=== PATIENT | male | born 1965 | race Caucasian/White ===

== ENCOUNTER 2024-03-15 16:12 | Emergency (ER) | payer BC, SELFPAY ==
--- NOTE | ~2024-03-15 | XR_ITS ---
EXAMINATION: XR chest 2V Exam Date/Time: 03/15/2024 16:26 CDT HISTORY: cough, decreased lung sounds Comparison: 05/05/2014. RESULT: Lines, tubes, and devices: None. Lungs and pleura: Clear. Granulomatous calcifications. Cardiomediastinal silhouette: Stable. Calcified hilar nodes. Other: No acute osseous or upper abdominal finding. IMPRESSION: No acute cardiopulmonary process. Reviewed, dictated and finalized at location K.
[2024-03-15 16:18] VITALS: BP 133/91; PULSE 80; RESP 20; TEMP 37; O2SAT 95
[2024-03-15] MEDS: IPRATROPIUM BR 0.02% INH SOLN 0.5 MG/2.5 ML VIAL INHALATION (17:04)
[2024-03-15] MEDS: IPRATROPIUM 0.5 MG/ALBUTEROL SULFATE 2.5 MG AMPUL.NEB 3 ML INHALATION (17:04)
--- NOTE | 2024-03-15 20:18 | ED.URI ---
HPI - URI/Sore Throat General Chief Complaint: Upper Respiratory Infection Stated Complaint: Congestion Time Seen by Provider: 03/15/24 16:34 Source: patient, RN notes reviewed and old records reviewed Mode of arrival: ambulatory Limitations: no limitations History of Present Illness HPI Narrative: 58 year-old male to Express Care with complaint of cough, hoarseness, congestion x3 days. Patient endorses history of asthma, bronchitis, pneumonia. Patient denies fever, nausea, vomiting. Patient able to tolerate fluids by mouth. Patient in no acute distress. Related Data Home Medications Medication Instructions Recorded Confirmed albuterol sulfate 90 mcg/actuation 90 mcg inhalation PRN PRN 03/15/24 03/15/24 aerosol inhaler Shortness Of Breath Or Wheezing budesonide-formoterol HFA 160 2 puff inhalation PRN PRN 03/15/24 03/15/24 mcg-4.5 mcg/actuation aerosol Shortness Of Breath Or Wheezing inhaler (Symbicort) hydroxyzine HCl 25 mg tablet 25 mg PO DAILY 03/15/24 03/15/24 pantoprazole 40 mg tablet,delayed 40 mg PO DAILY 03/15/24 03/15/24 release Allergies Allergy/AdvReac Type Severity Reaction Status Date / Time amoxicillin Allergy Severe RASH/HIVES Verified 03/15/24 16:35 Review of Systems Review of Systems: All systems reviewed & are unremarkable except as noted in HPI and below Constitutional: Constitutional: Reports as per HPI and Denies fever(s) Eyes: Eyes: Reports no additional eye complaints ENT: Reports as per HPI, Reports hoarseness and Reports nasal congestion Cardiovascular: Cardiovascular: Reports no additional cardiovascular complaints, Denies chest pain and Denies dyspnea Respiratory: Respiratory: Reports no additional respiratory complaints, Reports cough, Reports pain with cough and Denies dyspnea Musculoskeletal: Musculoskeletal: Reports no additional musculoskeletal complaints Neurologic: Reports system reviewed and no additional complaints, except as documented Psychiatric: Psychiatric: Reports no additional psychiatric complaints PMFSH Comments At the time of my signature, I reviewed and agree with the nursing past medical, surgical, social, and family history. There is no relevant family history pertinent to the patient complaint. Exam Const: General: cooperative, no acute distress, alert, ill appearing acutely, tired appearing and well nourished Nutritional Appearance: well nourished Orientation/consciousness: patient oriented x3 Limitations: no limitations HENMT: Head: normal to inspection Ears: external ears normal and TM abnormal erythematous on the right Face/Nose/Sinus: Normal external nose present, Normal nares present, normal facial exam, No erythema and No edema Face and sinus: normal facial exam, no erythema and no edema Mouth: Yes Normal oral and palatal mucosa present Throat: postnasal drainage Eyes: General: appearance normal, both eyes and all related structures Neck: Neck: normal visual inspection, full ROM and no meningeal signs Lymphatic: no lymphadenopathy noted and no lymphedema noted Chest: Chest palpation & inspection: normal inspection of the chest Resp: Effort & Inspection: normal respiratory effort and able to speak in complete sentences Auscultation: wheezes expiratory wheezes and scattered wheezes Cardio: Jugular venous distension: no JVD Rate: regular rate Rhythm: regular rhythm Back/Spine/Pelvis: Cervical Spine: cervical ROM normal Skin: General skin exam: normal color, no rashes or lesions noted and turgor normal Neuro: General: patient oriented x3, gait normal, moves all extremities and no meningeal signs Speech: normal speech Gait exam (Neuro): Normal gait present Extrem: General: normal to inspection, full ROM and capillary refill normal Psych: Appearance: grossly normal and well kempt Course Course Emergency Course: Some parts of this dictation were generated by voice recognition software and may contain typographical and/or gr
== END 2024-03-15 17:45 | disposition home or self-care (01) ==
PROVIDERS: Emergency Provider Nurse Practitioner Family; PCP Family Medicine
DX: H66.91 Otitis media, unspecified, right ear (principal); J45.901 Unspecified asthma with (acute) exacerbation; R73.03 Prediabetes
CPT/HCPCS: 71046; 94640; 99213; G0463

== ENCOUNTER 2025-01-22 11:42 | Emergency (ER) | payer BC, SELFPAY ==
--- NOTE | ~2025-01-22 | XR_ITS ---
Clinical Indication: Cough PA and lateral views of the chest: Comparison: 03/15/2024 Findings: The lungs are clear, without evidence of focal consolidation or pleural effusion. Cardiome diastinal silhouette is within normal limits. Bones and soft tissues are unremarkable. Impression: Normal chest. Reviewed, dictated and finalized at location . Impression: Normal chest.
--- OUTSIDE RECORDS SUMMARY | 2025-01-22 11:44 | XMS_ITS | Referral Summary ---
Author Organization [facility] Address [address] [place] [address] Care Team Providers Care Print Machine Operator Name Role Phone Lebron Brown MD Primary Care Provider [phone] Source Comments [facility],non-owned Affiliates and Associated Physician Practices is amultiple site organization consisting of ambulatory clinics and hospital sitesin [place], [place], [place] and [place]. This disclosure is being madepursuant to the Care Everywhere program and may not contain all information available regarding this patient. Last updated 18.[facility] Social History Tobacco Use Types Packs/Day Years Used Date Smoking Tobacco: Never Assessed Sex and Gender Information Value Date Recorded Sex Assigned at Not on file Gender Identity Not on file Sexual Orientation Not on file Plan of Treatment Not on file Care Teams Print Machine Operator Relationship Specialty Start Date End Date Lebron Brown MD [facility] [place] [address] PCP - General Family Medicine 04/06/18
--- OUTSIDE RECORDS SUMMARY | 2025-01-22 11:44 | XMS_ITS | Clinical Summary ---
Author Organization [address] Address [address] [place] [id number] Care Team Providers Care Rail Switchman Name Role Phone Unknown, Notinfile Primary Care Provider Unavail able Allergies Active Allergy Reactions Criticality Noted Date Comments Amoxicillin Hives Medium 11/28/2023 Medications albuterol HFA (PROVENTIL HFA,VENTOLIN HFA,PROAIR HFA) 90 mcg/actuation inhaler INHALE 2 PUFFS EVERY 4 HOURS NEEDED FOR SHORTNESS OF BREATH 3 Active azithromycin (ZITHROMAX) 250 mg tablet TAKE 2 TABLETS BY MOUTH TODAY, THEN TAKE 1 TABLET DAILY FOR 4 DAYS DIRECTED 3 Active Symbicort 160-4.5 mcg/actuation inhaler 3 Active hydrOXYzine (ATARAX) 25 mg tablet 4 Active methylPREDNISol one (MEDROL DOSEPACK) 4 mg Dosepack FOLLOW PACKAGE DIRECTIONS [address] (PROTONIX) 40 mg EC tablet 3 Active predniSONE (DELTASONE) 20 mg tablet TAKE 1 TABLET BY MOUTH EVERY DAY FOR 7 DAYS 3 Active Active Problems No known active problems Social History Tobacco Use Types Packs/Day Years Used Date Smoking Tobacco: Never Assessed Sex and Gender Information Value Date Recorded Sex Assigned at Not on file Legal Sex Male 2:16 PM GLOBAL MARKETING COORDINATOR Gender Identity Not on file Sexual Orientation Not on file Obstetrics History Last Filed Vital Signs Vital Sign Reading Time Taken Comments Blood Pressure 132/80 11/28/2023 3:31 PM GLOBAL MARKETING COORDINATOR Pulse 63 11/28/2023 3:31 PM GLOBAL MARKETING COORDINATOR Temperature 36.9 C (98.4 F) 11/28/2023 3:31 PM GLOBAL MARKETING COORDINATOR Respiratory Rate 20 11/28/2023 3:31 PM GLOBAL MARKETING COORDINATOR Oxygen Saturation 97% 11/28/2023 3:31 PM GLOBAL MARKETING COORDINATOR Inhaled Oxygen Concentration - - Weight 112 kg (247 lb) 11/28/2023 3:31 PM GLOBAL MARKETING COORDINATOR Height 185.4 cm (6' 1 ) 11/28/2023 3:31 PM GLOBAL MARKETING COORDINATOR Body Mass Index 32.59 11/28/2023 3:31 PM GLOBAL MARKETING COORDINATOR Plan of Treatment Health Maintenance Due Date Last Done Comments Colon Cancer Screening-Colonoscopy 1963 Depression Screening 1963 Hepatitis C Screening 1963 Prostate Cancer Screening-PSA 1963 DTaP/Tdap/Td Vaccine (1 - Tdap) 1974 Hepatitis B Screening 1981 Regular Well Visit/Exam 18-64 1981 Zoster Vaccine (1 of 2) 2013 Covid-19 Vaccine (4 - season) 2024 11/11/2021, 02/05/2021, 01/08/2021 Influenza Vaccine (#1) 2024 , 08/22/2022, 08/19/2021, Additional history exists Pneumococcal vaccine <65 Aged Out No longer eligible based on patient's age to complete this topic Insurance [facility] CHOICE OOS Member Subscriber Plan / Payer (Ef fective 2022-Present) Name:Vitor Davidson Relation to Subscriber:Self Name:Vitor Davidson Payer ID:[id number] (IC) Type: SEB Address: [facility] [id number] [place] [id number] Care Teams Rail Switchman Relationship Specialty Start Date End Date Unknown, Notinfile PCP - General 11/28/23
--- OUTSIDE RECORDS SUMMARY | 2025-01-22 11:44 | XMS_ITS | Continuity of Care Document ---
Author Organization [facility] Address [address] [place] [address] [place] [address] Phone Care Team Providers Care Career Technical Counselor Name Role Phone Burrows OD, Wilberto Unavailable Unavailable Procedures Procedure Date Eye Exam Established Pt Office/outpatient Visit, Est Office/outpatient Visit, New Advance Directives Directive Yes / No Effective Date File Name No Information Encounters Encounter Description Practice Location Reason(s) For Visit Diagnoses Date Provider Providers Copied on Encounter [facility], [address] [place] [address] [address], [place], [place], [id number], tel:[phone] [facility] No Information Jun-2 5-201 0 Burrows OD Wilberto. [address] , [address], [place], [address], . tel:[phone] Office/outpat ient Visit, [facility], [address] [place] [address] [address], [place], [place], [id number], tel:[phone] [facility] No Information Aug-0 5-201 0 Hina Rosa. [address], [place], [address], [place]. tel:[phone] Office/outpat ient Visit, [facility], [address] [place] [address] [address], [place], [place], [id number], tel:[phone] [facility] No Information Aug-0 3-201 0 Krishnascalos Venancio. [address], [address], [place]. tel:[phone] Family History Family Member Type Diagnosis Age At Onset No Information Payers Payer name Insurance type Covered libertarian ID Authoriza tion(s) No Information Social History Type Description Quantity Date Captured Comments Sex Male Smoking Status No Information Chief Complaint And Reason For Visit No Information Reason For Referral Reason For Referral No Information History Of Present Illness Encounter Date Complaint History Of Prese nt Illness No Information Functional Status Date Functional Assessmen t No Information Instructions Date Instruction Additional Infor mation No Information Assessments Type Assessment Date No Information Patient Care Teams Name Effective Dates (start - stop) Status Members No Information
--- OUTSIDE RECORDS SUMMARY | 2025-01-22 11:44 | XMS_ITS | Patient Health Summary ---
Author Organization [facility] Address [address] [facility] [place] [address] Care Team Providers Care Broom Bundler Name Role Phone Lebron Brown MD Primary Care Provider [phone] Note from [facility],non-owned Affiliates and Associated Physician Practices is amultiple site organization consisting of ambulatory clinics and hospital sitesin [place], [place], [place] and [place]. This disclosure is being madepursuant to the Care Everywhere program and may not contain all information available regarding this patient. Last updated 18.[facility] Social History Tobacco Use Types Packs/Day Years Used Date Smoking Tobacco: Never Assessed Sex and Gender Information Value Date Recorded Sex Assigned at Not on file Gender Identity Not on file Sexual Orientation Not on file Care Teams Broom Bundler Relationship Specialty Start Date End Date Lebron Brown MD [facility] [place] [address] PCP - General Family Medicine 04/06/18
--- OUTSIDE RECORDS SUMMARY | 2025-01-22 11:44 | XMS_ITS | Referral Summary ---
Author Organization [address] Address [address] [place] [id number] Care Team Providers Care Transitions Rn Care Coordinator Name Role Phone Unknown, Notinfile Primary Care [...] on file Legal Sex Male 2:16 PM TILE PRESSER Gender Identity Not on file Sexual Orientation Not on file Last Filed Vital Signs Vital Sign Reading Time Taken Comments Blood Pressure 132/80 11/28/2023 3:31 PM TILE PRESSER Pulse 63 11/28/2023 3:31 PM TILE PRESSER Temperature 36.9 C (98.4 F) 11/28/2023 3:31 PM TILE PRESSER Respiratory Rate 20 11/28/2023 3:31 PM TILE PRESSER Oxygen Saturation 97% 11/28/2023 3:31 PM TILE PRESSER Inhaled Oxygen Concentration - - Weight 112 kg (247 lb) 11/28/2023 3:31 PM TILE PRESSER Height 185.4 cm (6' 1 ) 11/28/2023 3:31 PM TILE PRESSER Body Mass Index 32.59 11/28/2023 3:31 PM TILE PRESSER Plan of Treatment Not on file Insurance [facility] CHOICE OOS Care Teams Transitions Rn Care Coordinator Relationship Specialty Start Date End Date Unknown, Notinfile PCP - General 11/28/23
--- OUTSIDE RECORDS SUMMARY | 2025-01-22 11:44 | XMS_ITS | Clinical Summary ---
Author Organization [facility] Address [address] [facility] [place] [address] Care Team Providers Care Supervisor Typesetting Name Role Phone Lebron Brown MD Primary Care Provider [phone] Source Comments [facility],non-owned Affiliates and Associated Physician Practices is amultiple site organization consisting of ambulatory clinics and hospital sitesin [place], [place], [place] and [place]. This disclosure is being madepursuant to the Care Everywhere program and may not contain all information available regarding this patient. Last updated 18.[facility] [employer] Social History Tobacco Use Types Packs/Day Years Used Date Smoking Tobacco: Never Assessed Sex and Gender Information Value Date Recorded Sex Assigned at Not on file Gender Identity Not on file Sexual Orientation Not on file Plan of Treatment Health Maintenance Due Date Last Done Comments COLOGUARD (AGES 45-75) - COL ON CA SCREENING 1963 COLON MONITORING 1963 COLONOSCOPY - COLON CA SCREENING 1963 CT COLONOGRAPHY - COLON CA SCREENING 1963 Colorectal Cancer Screening 1963 FIT - COLON CA SCREENING 1963 FLEX SIG - COLON CA SCREENING 1963 LIPID TESTING 1963 HIV SCREENING 1978 HEPATITIS C SCREENING 08/03/1981 DTAP/TDAP/TD VACCINES (1 - Tdap) 1982 PNEUMOCOCCAL VACCINE 50+ (1 of 1 - PCV) 2013 ZOSTER VACCINE (1 of 2) 2013 COVID-19 VACCINE ( - 2023-2 5 season) 2024 INFLUENZA VACCINE (#1) 2024 DEPRESSION SCREENING 11/16/2024 Respiratory Syncytial Virus (RSV) Vaccine Pt: or over 60 yrs (1 - 1-dose 75+ series) 2038 HEPATITIS B VACCINE Aged Out No longe r eligible based on patient's age to complete this topic HIB VACCINE Aged Out No longer eligi ble based on patient's age to complete this topic HPV VACCINE Aged Out No longer eligi ble based on patient's age to complete this topic MENINGOCOCCAL (Group B) VACCINE Aged Out No longer eligible based on patient's age to complete this topic MENINGOCOCCAL VACCINE Aged Out No shandra bertha eligible based on patient's age to complete this topic PNEUMOCOCCAL VACCINE Aged Out No long er eligible based on patient's age to complete this topic Care Teams Supervisor Typesetting Relationship Specialty Start Date End Date Lebron Brown MD [facility] [place] [address] PCP - General Family Medicine 04/06/18
[2025-01-22 11:46] VITALS: BP 135/62; PULSE 100; RESP 20; TEMP 36.1; O2SAT 97
--- OUTSIDE RECORDS SUMMARY | 2025-01-22 11:46 | XMS_ITS | Continuity of Care Document ---
Author Organization [facility] Address [address] [place] [address] [place] [address] Phone Care Team Providers Care Cathode Ray Tube Salvage Processor Name Role Phone Burrows OD, Wilberto Unavailable Unavailable Procedures Procedure Date Eye Exam Established Pt Office/outpatient Visit, Est Office/outpatient Visit, New Advance Directives Directive Yes / No Effective Date File Name No Information Encounters Encounter Description Practice Location Reason(s) For Visit Diagnoses Date Provider Providers Copied on Encounter [facility], [address] [place] [address] [address], [place], [place], [id number], tel:[phone] SEC [facility] No Information Jun-2 5-201 0 Burrows OD Wilberto. [address] [facility] , [address], [place], [address], . tel:[phone] Office/outpat ient Visit, [facility], [address] [place] [address] [address], [place], [place], [id number], tel:[phone] [facility] No Information Aug-0 5-201 0 Hina Rosa. [address], [place], [address], [place]. tel:[phone] Office/outpat ient Visit, [facility], [address] [place] [address] [address], [place], [place], [id number], tel:[phone] [facility] No Information Aug-0 3-201 0 Krishnascalos Venancio. [address], [address], [place]. tel:[phone] Family History Family Member Type Diagnosis Age At Onset No Information Payers Payer name Insurance type Covered republican ID Authoriza tion(s) No Information Social History [...]
[2025-01-22] MEDS: methylPREDNISolone SOD SUCC 125 MG VIAL IM (12:12)
[2025-01-22] MEDS: IPRATROPIUM 0.5 MG/ALBUTEROL SULFATE 2.5 MG AMPUL.NEB 3 ML INHALATION ×2 (12:12→12:52)
--- NOTE | 2025-01-22 12:52 | ED.GENADULT ---
HPI - General Adult General Chief complaint: Upper Respiratory Infection Stated complaint: chest/head congestion Source: patient Mode of arrival: ambulatory Limitations: no limitations History of Present Illness HPI narrative: Patient presents for evaluation of respiratory symptoms. Symptom onset 1 week ago. Reports sinus congestion, cloudy white nasal discharge, productive cough of white cloudy sputum, and dyspnea on exertion. He denies any fever, chills, nausea, vomiting, diarrhea. No recent sick contacts to his knowledge. He does not smoke. He has underlying asthma. He does not have any nebulizer solution home but has a nebulizer machine. He states that his current symptoms are consistent with previous asthma exacerbations. In the past, steroids, nebulizer treatments and antibiotics seem to help when he has these symptoms. Related Data Home Medications ?Medication ?Instructions ?Recorded ?Confirmed ?Last Taken ?Type albuterol sulfate 90 mcg/actuation 90 mcg inhalation PRN PRN 03/15/24 03/15/24 Unknown History aerosol inhaler Shortness Of Breath Or Wheezing budesonide-formoterol HFA 160 2 puff inhalation PRN PRN 03/15/24 03/15/24 Unknown History mcg-4.5 mcg/actuation aerosol Shortness Of Breath Or Wheezing inhaler (Symbicort) hydroxyzine HCl 25 mg tablet 25 mg PO DAILY 03/15/24 03/15/24 Unknown History pantoprazole 40 mg tablet,delayed 40 mg PO DAILY 03/15/24 03/15/24 Unknown History release Allergies Allergy/AdvReac Type Severity Reaction Status Date / Time amoxicillin Allergy Severe RASH/HIVES Verified 01/22/25 12:04 Review of Systems Review of Systems: CONSTITUTIONAL: Denies fever, chills, or sweats. EYES: Denies visual changes, redness, or discharge. ENT: Reports nasal congestion and cloudy white nasal discharge. CARDIOVASCULAR: Denies chest pain, palpitations, or edema. RESPIRATORY: Reports productive cough of cloudy white sputum and shortness of breath GASTROINTESTINAL: Denies abdominal pain, nausea, vomiting, or diarrhea. GENITOURINARY: Denies dysuria or hematuria. SKIN: Denies rash or itching. MUSCULOSKELETAL: Denies back pain, joint pain, or myalgia. NEUROLOGIC: Denies headache, numbness, dizziness, or weakness. PSYCHIATRIC: Denies anxiety or depression. [facility] Past Medical History Medical History Asthma Surgical History Surgical History No pertinent past surgical history Family History Family History Mother Family history non-contributory Social History Social History Substance use: never Living arrangements: with family Gender identity (if verbalized by the patient): Male Sexual Orientation (if Verbalized by the Patient): Straight or Heterosexual Spiritual care concerns: No Exam Narrative: GENERAL: Well-appearing, well-nourished, and in no acute distress. HEAD: Normocephalic, atraumatic. EYES: PERRLA and EOMI. ENT: Nares clear, no rhinorrhea or epistaxis. Mucous membranes moist. Oropharynx without tonsillar hypertrophy exudate or other lesions. Bilateral TMs pearly vera nonbulging NECK: Supple. No adenopathy or masses. No carotid bruits or JVD CHEST: Expiratory wheezing noted in posterior lung roth bilaterally. Cough present on exam. HEART: Regular rate and rhythm. No murmur heard. Normal peripheral pulses. ABDOMEN: Soft, nontender, nondistended, normal active bowel sounds. EXTREMITIES: Normal range of motion. No edema. SKIN: Warm, dry, no rash. NEURO: No focal deficits. Alert and oriented x3. PSYCH: Normal mood and affect. Course Course Emergency Course: This is a 59-year-old male who presented for evaluation of respiratory symptoms. Influenza and COVID were not checked as his symptom onset was about a week ago. Chest x-ray negative. He has high risk for pneumonia so we opted proceed with antibiotic therapy. Furthermore he had improvement in his symptoms in the past with this therapy and. Will discharge with cefdinir, azithromycin, prednisone, albuterol. He should follow-up with his primary provider and go to the ER for worsening symptoms. Patient in agreement with plan of care. Level of Care: Express Care Visit Vital Signs Vital signs: Vital Signs Temperature 36.1 C L 01/22/25 11:46 Pulse Rate 100 01/22/25 11:46 Respiratory Rate 20 01/22/25 11:46 Blood Pressure 135/62 01/22/25 11:46 Pulse Oximetry 97 01/22/25 11:46 Oxygen Delivery Room Air 01/22/25 11:46 Temperature 36.1 C L 01/22/25 11:46 Pulse Rate 100 01/22/25 11:46 Respiratory Rate 20 01/22/25 11:46 Blood Pressure 135/62 01/22/25 11:46 Pulse Oximetry 97 01/22/25 13:03 Oxygen Delivery Room Air 01/22/25 11:46 Medical Decision Making Vital Signs Vital Signs: Vital Signs Temperature 36.1 C L 01/22/25 11:46 Pulse Rate 100 01/22/25 11:46 Respiratory Rate 20 01/22/25 11:46 Blood Pressure 135/62 01/22/25 11:46 Pulse Oximetry 97 01/22/25 11:46 Oxygen Delivery Room Air 01/22/25 11:46 Temperature 36.1 C L 01/22/25 11:46 Pulse Rate 100 01/22/25 11:46 Respiratory Rate 20 01/22/25 11:46 Blood Pressure 135/62 01/22/25 11:46 Pulse Oximetry 97 01/22/25 13:03 Oxygen Delivery Room Air 01/22/25 11:46 Imaging Data Radiologist's impression: Clinical Indication: Cough PA and lateral views of the chest: Comparison: 03/15/2024 Findings: The lungs are clear, without evidence of focal consolidation or pleural effusion. Cardiomediastinal silhouette is within normal limits. Bones and soft tissues are unremarkable. Impression: Normal chest. Discharge Plan Discharge Clinical Impression: Asthma exacerbation, At risk for pneumonia Patient Disposition: Home, Self-Care Condition: Stable Instructions: Antibiotic Form, Asthma (ED), Pneumonia (ED) Patient Language: Dutch Prescriptions: New azithromycin 250 mg tablet See Rx Instructions .ROUTE .COMPLEX Qty: 6 0RF Rx Instructions: For 250 mg dose pack: take 500 mg today (day 1), then 250 mg for 4 days (days 2-5) cefdinir 300 mg capsule 300 mg PO Q12H Qty: 20 0RF prednisone 50 mg tablet 50 mg PO DAILY Qty: 5 0RF albuterol sulfate 2.5 mg /3 mL (0.083 %) solution for nebulization 2.5 mg inhalation Q6H Qty: 90 0RF No Action pantoprazole 40 mg tablet,delayed release (DR/EC) 40 mg PO DAILY hydroxyzine HCl 25 mg tablet 25 mg PO DAILY albuterol sulfate 90 mcg/actuation HFA aerosol inhaler 90 mcg INHALATION PRN PRN (Reason: Shortness Of Breath Or Wheezing) budesonide-formoterol [Symbicort] 160-4.5 mcg/actuation HFA aerosol inhaler 2 puff INHALATION PRN PRN (Reason: Shortness Of Breath Or Wheezing) albuterol sulfate 2.5 mg /3 mL (0.083 %) solution for nebulization 2.5 mg inhalation Q6H Qty: 90 0RF ipratropium bromide 0.02 % solution 2.5 ml inhalation Q6H PRN (Reason: shortness of breath or wheezing) Qty: 75 0RF Follow-up/Referrals: Stephanie,Lebron Dong MD [Primary Care Provider] - Time of Disposition: 13:23
[2025-01-22 13:03] VITALS: O2SAT 97
== END 2025-01-22 13:25 | disposition home or self-care (01) ==
PROVIDERS: Emergency Provider Nurse Practitioner; PCP Family Medicine
DX: J45.901 Unspecified asthma with (acute) exacerbation (principal); J18.9 Pneumonia, unspecified organism
CPT/HCPCS: 71046; 94640; 99213; G0463; J2919

== ENCOUNTER 2025-03-23 09:46 | Outpatient (CLI) | payer BC, SELFPAY ==
--- NOTE | ~2025-03-23 | CT_ITS ---
CT abdomen pelvis w con Ordering provider: Lebron Brown, History: 59 years Male with . Jaundice and abd pain . Comparison: None. Technique: CT abdomen and pelvis with IV and without oral contrast. Automated exposure control and it erative reconstruction technique were employed. The dose-length product was 1301.09 mGy-cm. 100 mL Om nipaque 350 was given IV. Findings: VISUALIZED LOWER CHEST: Dependent atelectatic changes.. UPPER ABDOMINAL ORGANS: Liver: Intrahepatic biliary dilatation with dilated CBD. CBD measures 1.3 cm. No definite stones or m asses seen in the CBD. The dilatation is extending to the sphincter of Oddi. ERCP is advised for furt her evaluation. Gallbladder: Slightly distended. No stones seen Spleen: Normal. Benign calcifications. Stomach/duodenum: Small sliding hiatus hernia. Thickened wall in the lesser curvature area. Further e valuation advised. Pancreas: Normal. Adrenals: Normal. Kidneys: Normal. PELVIC ORGANS: The bladder is normal. BOWEL AND MESENTERY: Colon: No evidence of diverticulitis. Slight thickening of the transverse colon near to the splenic f lexure is seen. Follow-up advised. Normal appendix. Small Bowel: Normal. No obstruction. Peritoneum/mesentery: No free air or free fluid. No mesenteric lymphadenopathy. RETROPERITONEUM: Mild atheromatous disease of the abdominal aorta. No retroperitoneal lymphadenopat hy. MUSCULOSKELETAL: Superficial soft tissues: The superficial soft tissues are normal. Bones: Age appropriate degenerative changes of the spine. Small sclerotic lesion seen in the left lee ann ac bone. Follow-up advised. 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 Minimal spondylolisthesis i s noted. Pubic symphysitis. IMPRESSION: 1. Dilated intrahepatic biliary ducts and CBD. ERCP is advised for evaluation of the sphincter of Od di. Distended gallbladder with no stones. 2. No evidence of appendicitis, diverticulitis or intestinal obstruction. 3. Slightly thickened segment of the transverse colon near to the splenic flexure. Follow-up advised . Reviewed, dictated and finalized at location A. IMPRESSION: 1. Dilated intrahepatic biliary ducts and CBD. ERCP is advised for evaluation of the sphincter of Oddi. Distended gallbladder with no stones. 2. No evidence of appendicitis, diverticulitis or intestinal obstruction. 3. Slightly thickened segment of the transverse colon near to the splenic flex ure. Follow-up advised.
--- OUTSIDE RECORDS SUMMARY | 2025-03-23 10:05 | XMS_ITS | Clinical Summary ---
Author Organization [address] Address [address] [place] [address] Care Team Providers Care Dyer Helper Name Role Phone Unknown, Notinfile Primary Care [...] on file Legal Sex Male 2:16 PM CRUSHER SUPERVISOR Gender Identity Not on file Sexual Orientation Not on file Obstetrics History Last Filed Vital Signs Vital Sign Reading Time Taken Comments Blood Pressure 132/80 11/28/2023 3:31 PM CRUSHER SUPERVISOR Pulse 63 11/28/2023 3:31 PM CRUSHER SUPERVISOR Temperature 36.9 C (98.4 F) 11/28/2023 3:31 PM CRUSHER SUPERVISOR Respiratory Rate 20 11/28/2023 3:31 PM CRUSHER SUPERVISOR Oxygen Saturation 97% 11/28/2023 3:31 PM CRUSHER SUPERVISOR Inhaled Oxygen Concentration - - Weight 112 kg (247 lb) 11/28/2023 3:31 PM CRUSHER SUPERVISOR Height 185.4 cm (6' 1 ) 11/28/2023 3:31 PM CRUSHER SUPERVISOR Body Mass Index 32.59 11/28/2023 3:31 PM CRUSHER SUPERVISOR Plan of Treatment Health Maintenance Due Date [...] patient's age to complete this topic Insurance [facility] CHOICE OOS Member Subscriber Plan / Payer (Ef fective 2022-Present) Name:Vitor Davisdon Relation to Subscriber:Self Name:Vitor Davidson Payer ID:[id number] (IC) Type: SEB Address: [facility] [id number] [place] [id number] Care Teams Dyer Helper Relationship Specialty Start Date End Date Unknown, Notinfile PCP - General 11/28/23
--- OUTSIDE RECORDS SUMMARY | 2025-03-23 10:05 | XMS_ITS | Clinical Summary ---
Author Organization [facility] Address [address] [facility] [place] [address] Care Team Providers Care Metal Shaping Machine Operator Name Role Phone Lebron Brown MD Primary Care Provider [phone] Source Comments [facility],non-owned Affiliates and Associated Physician Practices is amultiple site organization consisting of ambulatory clinics and hospital sitesin [place], [place], [place] and [place]. This disclosure is being madepursuant to the Care Everywhere program and may not contain all information available regarding this patient. Last updated 18.[facility] [address] Social History Tobacco Use Types Packs/Day Years Used Date Smoking Tobacco: Never Assessed Sex and Gender Information Value Date Recorded Sex Assigned at Not on file Legal Sex Male 3:52 PM CDT Gender Identity Not on file Sexual Orientation [...] VACCINE ( - 2023-2 5 season) 2024 DEPRESSION SCREENING 11/16/2024 INFLUENZA VACCINE (Season Ended) 2025 Respiratory Syncytial Virus (RSV) Vaccine Pt: or [...] to complete this topic MENINGOCOCCAL (Group B) VACC INE SHARED DECISION-MAKING Aged Out No longer eligibl e based on patient's age to complete this topic MENINGOCOCCAL GROUPS A/C/Y/W VACCINE Aged Out No longer eligible b ased on patient's age to complete this topic Insurance [facility] Address: [facility] [id number] [place] [address] Care Teams Metal Shaping Machine Operator Relationship Specialty Start Date End Date Lebron Brown MD [facility] [place] [address] PCP - General Family Medicine 04/06/18
--- OUTSIDE RECORDS SUMMARY | 2025-03-23 10:05 | XMS_ITS ---
Author Organization [facility] Address [address] [facility] [address] [place] [address] Care Team Providers Care Platform Power Technician Name Role Phone Lebron Brown MD Primary Care Provider Abebe Carpenter Unavailable [phone] Allergies Allergen (clinical drug ingredient) Drug/Non Drug Allergy documented on EMR Reaction Allergy Type Onset Date Status Penicillin rash Drug Allergy active REASON FOR VISIT Screen/positive cologuard/6ft1 235 Encounters Encounter Location Date Provider Diagnosis [address] [address] 03/08/2024 Abebe Meeks Positive colorectal cancer screening using Cologuard test R19.5 Assessments Encounter Date Diagnosis (ICD Code) Assessment Notes Treatment Notes Treatment Clinical Notes Section Notes 03/08/2024 Positive colorectal cancer screening using Cologuard test (ICD-10 - R19.5) Plan Of Treatment Next Appt Details Follow Up: * Colonoscopy 3 y ear, Reason: Progress Notes * Eloy DAVIDSONold ADOB:[birth year] (58 yo M)Acc No.[id number]:03/08/2024 Patient: Vitor Madrid Provider: Mickey Meeks D.O. :1965 A ge:58 Y S ex:Male Date:03/08/2024 Address:[address] [place] [address] , [facility] Pcp:Lebron Brown MD Subjective: * Chief Complaints: * S creen/positive cologuard/6ft1 235 * Medical History: * Surgical History: * Hospitalization/Major Diagno stic Procedure: * Medications: * Allergies: P enicillin: rash - Allergy Objective: Assessment: * Assessment: 1. P ositive colorectal cancer screening using Cologuard test - R19.5 (Primary) Plan: * Treatment: * Procedure Codes: 4 5385 LESION REMOVAL COLONOSCOPY * Follow Up: * Colonoscopy 3 year * Images: * Sign off status: Completed true * Provider: Mickey Meeks D.O. Date: 0 03/08/2024 Generated for Lindsay giraldo/Yoel/Phil on: 0 03/23/2025 10:05 AM CDT
--- OUTSIDE RECORDS SUMMARY | 2025-03-23 10:05 | XMS_ITS ---
Author Organization [employer], [facility] Address [address] [place] [address] [address]. [address]ar[address] [place] [address] Care Team Providers Care Director Of Category Management Name Role Phone Lebron Brown MD Primary Care Provider Abebe Carpenter Unavailable [phone] REASON FOR VISIT 03/08 BCBS Colon Auth-Call Encounters Encounter Location Date Provider Diagnosis [facility], [address] Villarreal [address] [place] [phone] 02/11/2024 Abebe Meeks Plan Of Treatment No Information Progress Notes * Vitor DAVIDSON ADOB:[birth year] (58 yo M)Acc No.[id number]:02/11/2024 Patient: Vitor Madrid :1965 A ge:58 Y S ex:Male Address:[address] [place] [address] , [place], [address] * true * Date: Generated for Printi ng/Faxing/eTransmitting on: 0 03/23/2025 10:05 AM CDT
--- OUTSIDE RECORDS SUMMARY | 2025-03-23 10:05 | XMS_ITS | Continuity of Care Document ---
Author Organization [facility] Address [address] [place] [address] [place] [address] Phone Care Team Providers Care Aviation Electronic Warfare Operator Name Role Phone Burrows OD, Wilberto Unavailable Unavailable Procedures Procedure Date Eye Exam Established Pt Office/outpatient Visit, Est Office/outpatient Visit, New Advance Directives Directive Yes / No Effective Date File Name No Information Encounters Encounter Description Practice Location Reason(s) For Visit Diagnoses Date Provider Providers Copied on Encounter [facility], [address] [place] [address] [address], [place], [place], [id number], tel:[phone] [facility] No Information Jun-2 5-201 0 Burrows OD Wilberto. [address] , [address], [place], [address], . tel:[phone] Office/outpat ient Visit, [facility], [address] [place] [address] [address], [place], [place], [id number], tel:[phone] [facility] No Information Aug-0 5-201 0 Hina Rosa. [address], [place], [address], [place]. tel:[phone] Office/outpat ient Visit, [facility], [address] [place] [address] [address], [place], [place], [id number], tel:[phone] [facility] No Information Aug-0 3-201 0 Krishnascalos Venancio. [address], [address], [place]. tel:[phone] Family History Family Member Type Diagnosis Age [...]
--- OUTSIDE RECORDS SUMMARY | 2025-03-23 10:05 | XMS_ITS | Patient Health Record ---
Author Organization [employer] Address [address] [facility] [address] [place] [address] Care Team Providers Care Gate Guard Name Role Phone Lebron Brown MD Primary Care Provider Abebe Carpenter Unavailable [phone] Allergies Allergen (clinical drug ingredient) Drug/Non Drug Allergy documented on EMR Reaction Allergy Type Onset Date Status Penicillin rash Drug Allergy active Reason For Referral No Information Medications Medication SIG (Take, Route, Fr equency, Duration) Notes Start Date End Date Status Suflave 178.7 GM ML Orally twice a day for 1 days 02/11/2024 Active Plan Of Treatment No Information Insurance Providers Payer Name Payer Address Payer Phone Subscriber Number Group Number Insured Name Patient Relationship to Insured Coverage Start Date Coverage End Date Blue Access PPO E2 [address] [place] [address] [id number] Vitor Davidson Self - patient is the insured Medical (General) History Medical History History ICD Code Asthma GERD
--- OUTSIDE RECORDS SUMMARY | 2025-03-23 10:05 | XMS_ITS | Referral Summary ---
Author Organization [address] Address [address] [place] [address] Care Team Providers Care Concrete Craftsman Name Role Phone Unknown, Notinfile Primary Care [...] on file Legal Sex Male 2:16 PM FARM PRODUCT PURCHASER Gender Identity Not on file Sexual Orientation Not on file Last Filed Vital Signs Vital Sign Reading Time Taken Comments Blood Pressure 132/80 11/28/2023 3:31 PM FARM PRODUCT PURCHASER Pulse 63 11/28/2023 3:31 PM FARM PRODUCT PURCHASER Temperature 36.9 C (98.4 F) 11/28/2023 3:31 PM FARM PRODUCT PURCHASER Respiratory Rate 20 11/28/2023 3:31 PM FARM PRODUCT PURCHASER Oxygen Saturation 97% 11/28/2023 3:31 PM FARM PRODUCT PURCHASER Inhaled Oxygen Concentration - - Weight 112 kg (247 lb) 11/28/2023 3:31 PM FARM PRODUCT PURCHASER Height 185.4 cm (6' 1 ) 11/28/2023 3:31 PM FARM PRODUCT PURCHASER Body Mass Index 32.59 11/28/2023 3:31 PM FARM PRODUCT PURCHASER Plan of Treatment Not on file Insurance [facility] CHOICE OOS Care Teams Concrete Craftsman Relationship Specialty Start Date End Date Unknown, Notinfile PCP - General 11/28/23
--- OUTSIDE RECORDS SUMMARY | 2025-03-23 10:06 | XMS_ITS ---
Author Organization [facility] [employer], [facility] Address [address] [place] [address] Dr. Villarreal [address] [place] [address] Care Team Providers Care Corporate Planner Name Role Phone Lebron Brown MD Primary Care Provider Abebe Carpenter Unavailable [phone] REASON FOR VISIT 03/08 Suflave Medications Medication SIG (Take, Route, Fr equency, Duration) Notes Start Date End Date Status Suflave 178.7 GM ML Orally twice a day for 1 days 02/11/2024 Active Encounters Encounter Location Date Provider Diagnosis [facility] Villarreal [address] [place] [address] 02/11/2024 Abebe Meeks Plan Of Treatment Medication Medication Name Sig Start Date Stop Date Notes Suflave 178.7 GM ML Orally twice a day for 1 days 02/11/20 24 Progress Notes * Vitor DAVIDSON ADOB:[birth year] (58 yo M)Acc No.[id number]:02/11/2024 Patient: Vitor Madrid :1965 A ge:58 Y S ex:Male Address:[address] [place] [address] , [place], [address] * Refills Start Suflave Solution Reconstituted, 178.7 GM, Orally, 1 Kit, ML, twice a day, 1 days, Refills=0 * true * Date: Generated for Printi ng/Faxing/eTransmitting on: 0 03/23/2025 10:05 AM CDT
[2025-03-23 10:44] LABS: Estimated Glomerular Filt Rate > 60
== END 2025-03-23 09:47 | disposition home or self-care (01) ==
PROVIDERS: PCP Family Medicine; Visit Provider Family Medicine
DX: R17 Unspecified jaundice (principal); R10.9 Unspecified abdominal pain
CPT/HCPCS: 74177; Q9967

== ENCOUNTER 2025-03-24 12:26 | Inpatient (IN) | payer BC, SELFPAY ==
--- NOTE | ~2025-03-24 | MR_ITS ---
EXAMINATION: MR MRCP wo/w con/w 3D wo ind DATE: 03/25/2025 08:30 INDICATION: Obstructive jaundice TECHNIQUE: Magnetic resonance imaging (MRI) of the abdomen was performed without and with 20 mL Multi paradise intravenous contrast. Sequences included coronal T2-weighted SS-FSE, coronal T2-weighted FS SS- FSE, coronal T2-weighted FS FIESTA, axial T2-weighted FS FIESTA, axial T2-weighted FIESTA, sagittal T 2-weighted SS-FSE, axial T1-weighted dual-echo FSPGR, axial T2-weighted SS-FSE, axial T1-weighted LAV A, axial T2-weighted STIR FSE. Thick-slab T2-weighted FRFSE-XL images were obtained for magnetic reso nance cholangiopancreatography (MRCP). Rotating maximum intensity projection 3-D reconstructions of t he volumetric data were created by the technologist. Postcontrast sequences included a time course of axial T1-weighted LAVA. COMPARISON: CT dated 04/09 FINDINGS: Heart size is normal. No pericardial or pleural effusion. There is moderate intrahepatic biliary duct al dilation. Liver is otherwise normal. Gallbladder is dilated to 4.5 cm in maximal diameter but appe ars otherwise normal with no wall thickening, cholelithiasis or pericholecystic stranding to suggest acute cholecystitis. The common bile duct is also dilated to 1.4 cm in maximal diameter proximally an d 1.1 cm proximal to the ampulla where there is no evident obstructing stone or mass. Low signal inte nsity calcified granulomata the spleen. Pancreas, bilateral adrenal glands and kidneys are normal. Vi sualized portions of bowels are unremarkable. No pathologically enlarged abdominal or upper pelvic ly mphadenopathy. L5 spondylolysis with bilateral pars interarticularis defects and 7 mm anterolisthesis of L5 on S1. IMPRESSION: 1. Moderate intra and extra hepatic biliary ductal dilation extending to the ampulla where there is n o evident obstructing stone or mass. Reviewed, dictated and finalized at location A. IMPRESSION: 1. Moderate intra and extra hepatic biliary ductal dilation extending to the am cl where there is no evident obstructing stone or mass.
--- OUTSIDE RECORDS SUMMARY | 2025-03-24 12:29 | XMS_ITS ---
Author Organization [email or web address], [facility] Address [address] [place] [address] Dr. [address] [place] [address] Care Team Providers Care Envelope Sealing Machine Operator Name Role Phone Lebron Brown MD Primary Care Provider Abebe Carpenter Unavailable [phone] REASON FOR VISIT FYI-Elev biliruben/fatigue/yellow skin Encounters Encounter Location Date Provider Diagnosis [facility], [address] [place] [address] 03/24/2025 Abebe Meeks Plan Of Treatment No Information Progress Notes * Vitor DAVIDSON ADOB:[birth year] (59 yo M)Acc No.[id number]:03/24/2025 Patient: Vitor TABARES :1965 A ge:59 Y S ex:Male Address:[address] [place] [address], [address] * * Date:
--- OUTSIDE RECORDS SUMMARY | 2025-03-24 12:29 | XMS_ITS | Referral Summary ---
Author Organization [address] Address [address] [place] [address] Care Team Providers Care Machine Featheredger And Reducer Name Role Phone Unknown, Notinfile Primary Care [...] on file Legal Sex Male 2:16 PM MEDIA CONSULTANT Gender Identity Not on file Sexual Orientation Not on file Last Filed Vital Signs Vital Sign Reading Time Taken Comments Blood Pressure 132/80 11/28/2023 3:31 PM MEDIA CONSULTANT Pulse 63 11/28/2023 3:31 PM MEDIA CONSULTANT Temperature 36.9 C (98.4 F) 11/28/2023 3:31 PM MEDIA CONSULTANT Respiratory Rate 20 11/28/2023 3:31 PM MEDIA CONSULTANT Oxygen Saturation 97% 11/28/2023 3:31 PM MEDIA CONSULTANT Inhaled Oxygen Concentration - - Weight 112 kg (247 lb) 11/28/2023 3:31 PM MEDIA CONSULTANT Height 185.4 cm (6' 1 ) 11/28/2023 3:31 PM MEDIA CONSULTANT Body Mass Index 32.59 11/28/2023 3:31 PM MEDIA CONSULTANT Plan of Treatment Not on file Insurance [facility] CHOICE OOS Care Teams Machine Featheredger And Reducer Relationship Specialty Start Date End Date Unknown, Notinfile PCP - General 11/28/23
--- OUTSIDE RECORDS SUMMARY | 2025-03-24 12:29 | XMS_ITS | Clinical Summary ---
Author Organization [facility] Address [address] [facility] [place] [address] Care Team Providers Care Or Assistant Name Role Phone Lebron Brown MD Primary Care Provider [phone] [facility],non-owned Affiliates and Associated Physician Practices is amultiple site organization consisting of ambulatory clinics and hospital sitesin [place], [place], [place] and [place]. This disclosure is being madepursuant to the Care Everywhere program and may not contain all information available regarding this patient. Last updated 18.[facility] [employer] Social History Tobacco Use Types Packs/Day Years [...] age to complete this topic Insurance ANTH Care Teams Or Assistant Relationship Specialty Start Date End Date Lebron Brown MD [facility] [place] [address] PCP - General Family Medicine 04/06/18
--- OUTSIDE RECORDS SUMMARY | 2025-03-24 12:29 | XMS_ITS | Continuity of Care Document ---
Author Organization [facility] Address [address] [place] [address] [place] [address] Phone Care Team Providers Care Cnc Mill Operator Name Role Phone Burrows OD, Wilberto Unavailable Unavailable Procedures Procedure Date Eye Exam Established Pt Office/outpatient Visit, Est Office/outpatient Visit, New Advance Directives Directive Yes / No Effective Date File Name No Information Encounters Encounter Description Practice Location Reason(s) For Visit Diagnoses Date Provider Providers Copied on Encounter [facility], [address] [place] [address] [address], [place], [place], [id number], tel:[phone] SEC [facility] No Information Jun-2 5-201 0 Burrows OD Wilberto. [address] [facility] , [address], [place], [address], . tel:[phone] Office/outpat ient Visit, [facility], [address] [place] [address] [address], [place], [place], [id number], tel:[phone] SEC [facility] No Information Aug-0 5-201 0 Hina Rosa. [address] [facility] [address], [place], [address], [place]. tel:[phone] Office/outpat ient Visit, [facility], [address] [place] [address] [address], [place], [place], [id number], tel:[phone] SEC [facility] No Information Aug-0 3-201 0 Krishnascalos Venancio. [address], [address], [place]. tel:[phone] Family History Family Member Type Diagnosis Age At Onset No Information Payers Payer name Insurance type Covered green party ID Authoriza tion(s) No Information Social History [...]
--- OUTSIDE RECORDS SUMMARY | 2025-03-24 12:29 | XMS_ITS ---
Author Organization [facility], [facility] Address [address] [place] [address] [address] [place] [address] Care Team Providers Care Financial Systems Manager Name Role Phone Lebron Brown MD Primary Care Provider Abebe Carpenter Unavailable [phone] REASON FOR VISIT Reviewed records/phone note Encounters Encounter Location Date Provider Diagnosis [facility], [address] [place] [address] 03/24/2025 Abebe Meeks Plan Of Treatment No Information Progress Notes * Vitor DAVIDSON ADOB:[birth year] (59 yo M)Acc No.[id number]:03/24/2025 Patient: Vitor TABARES :1965 A ge:59 Y S ex:Male Address:[address] [place] [address], [address] * true * Date: Generated for Printi ng/Faxing/eTransmitting on: 0 03/24/2025 12:29 PM CDT
--- OUTSIDE RECORDS SUMMARY | 2025-03-24 12:30 | XMS_ITS ---
Author Organization [employer] Address [address] [facility] [address]. [address] [place] [address] Care Team Providers Care Coordinator Of Placement Name Role Phone Lebron Brown MD Primary Care Provider Abebe Carpenter Unavailable [phone] Allergies Allergen (clinical drug ingredient) Drug/Non Drug Allergy documented on EMR Reaction Allergy Type Onset Date Status Penicillin rash Drug Allergy active REASON FOR VISIT Screen/positive cologuard/6ft1 235 Encounters Encounter Location Date Provider Diagnosis [address] [address] 03/08/2024 Abebe Meeks Positive colorectal cancer screening using Cologuard test R19.5 Assessments Encounter Date Diagnosis (ICD Code) Assessment Notes Treatment Notes Treatment Clinical Notes Section Notes 03/08/2024 Positive colorectal cancer screening using Cologuard test (ICD-10 - R19.5) Plan Of Treatment Next Appt Details Follow Up: * Colonoscopy 3 y ear, Reason: Progress Notes * Eloy DAVIDSONold ADOB:[birth year] (58 yo M)Acc No.[id number]:03/08/2024 Patient: Vitor Madrid Provider: Mickey Meeks D.O. :1965 A ge:58 Y S ex:Male Date:03/08/2024 Address:[address] [place] [address] , [id number] Pcp:Lebron Brown MD Subjective: * Chief Complaints: [...] 03/08/2024 Generated for Lindsay giraldo/Yoel/Phil on: 0 03/24/2025 12:29 PM CDT
--- OUTSIDE RECORDS SUMMARY | 2025-03-24 12:30 | XMS_ITS | Patient Health Record ---
Author Organization [facility], [facility] Address [address] [place] [address] [address] [place] [address] Care Team Providers Care Popped Corn Oven Attendant Name Role Phone Lebron Brown MD Primary Care Provider Abebe Carpenter Unavailable [phone] Allergies Allergen (clinical drug ingredient) Drug/Non Drug Allergy documented on EMR Reaction Allergy Type Onset Date Status Penicillin rash Drug Allergy active Reason For Referral No Information Medications Medication SIG (Take, Route, Fr equency, Duration) Notes Start Date End Date Status Suflave 178.7 GM ML Orally twice a day for 1 days 02/11/2024 Active Encounters Encounter Location Date Provider Diagnosis [facility], [address] [place] [address] 03/24/2025 Abebe Meeks [facility], [address] [place] [address] 03/24/2025 Abebe Meeks Plan Of Treatment No Information Insurance Providers Payer Name Payer Address Payer Phone Subscriber Number Group Number Insured Name Patient Relationship to Insured Coverage Start Date Coverage End Date Blue Access PPO E2 [address] [place] [address] [id number] Vitor Davidson Self - patient is the insured Medical (General) History Medical History History ICD Code Asthma GERD
--- OUTSIDE RECORDS SUMMARY | 2025-03-24 12:30 | XMS_ITS | Clinical Summary ---
Author Organization [address] Address [address] [place] [address] Care Team Providers Care Strategic Partnership Representative Name Role Phone Unknown, Notinfile Primary Care [...] on file Legal Sex Male 2:16 PM EDGE STITCHER Gender Identity Not on file Sexual Orientation Not on file Obstetrics History Last Filed Vital Signs Vital Sign Reading Time Taken Comments Blood Pressure 132/80 11/28/2023 3:31 PM EDGE STITCHER Pulse 63 11/28/2023 3:31 PM EDGE STITCHER Temperature 36.9 C (98.4 F) 11/28/2023 3:31 PM EDGE STITCHER Respiratory Rate 20 11/28/2023 3:31 PM EDGE STITCHER Oxygen Saturation 97% 11/28/2023 3:31 PM EDGE STITCHER Inhaled Oxygen Concentration - - Weight 112 kg (247 lb) 11/28/2023 3:31 PM EDGE STITCHER Height 185.4 cm (6' 1 ) 11/28/2023 3:31 PM EDGE STITCHER Body Mass Index 32.59 11/28/2023 3:31 PM EDGE STITCHER Plan of Treatment Health Maintenance Due Date [...] patient's age to complete this topic Insurance [facility] CHOICE OOS Member Subscriber Plan / Payer (Ef fective 2022-Present) Name:Vitor Davidson Relation to Subscriber:Self Name:Vitor Davidson Payer ID:[id number] (IC) Type: SEB Address: [facility] [address] [place] [id number] Care Teams Strategic Partnership Representative Relationship Specialty Start Date End Date Unknown, Notinfile PCP - General 11/28/23
[2025-03-24 12:42] VITALS: BP 136/79; PULSE 89; RESP 16; TEMP 36.6; O2SAT 97
[2025-03-24 13:06] LABS: Basophils Absolute Auto 0.1 K/mm3 (0.0-0.1); Basophils Percent Auto 1.6 % (0.2-1.2); Eosinophils Absolute Auto 0.4 K/mm3 (0-0.3); Eosinophils Percent Auto 4.2 % (0-4.4); Hematocrit 37.1 % (42.0-52.0); Hemoglobin 13.2 g/dL (14.0-18.0); Immature Granulocyte Absolute 0.18 K/mm3 (0.00-0.031); Immature Granulocyte Percent A 2.1 % (0-0.5); Lymphocytes Absolute Auto 1.02 K/mm3 (0.9-3.2); Lymphocytes Percent Auto 11.6 % (18.3-44.2); Mean Corpuscular HGB Conc 35.6 g/dl (32-36); Mean Corpuscular Hemoglobin 31.6 pg (26-34); Mean Corpuscular Volume 88.8 fl (80-100); Mean Platelet Volume 9.2 fl (7.4-10.4); Monocytes Percent Auto 11.8 % (2.6-8.5); Neutrophils Percent Auto 68.7 % (45.5-73.1); Platelet Count Result 369 k/mm3 (150-375); Red Blood Count 4.18 M/mm3 (4.6-6.20); Red Cell Distribution Width 14.5 % (11.5-14.5); White Blood Count 8.8 K/mm3 (4.5-10.0)
[2025-03-24 13:08] LABS: Add Urine Microscopic? YES; Appearance Urine Clear (Clear); Bilirubin Urine 2+ (Negative); Blood Urine Negative (Negative); Color Urine Dark Yellow (Yellow); Glucose Urine UA Negative (Negative); Ketones Urine Negative (Negative); Leukocyte Esterase Ur Negative LEU/UL (Negative); Nitrate Urine Negative (Negative); Protein Urine Negative (Negative); Specific Grav Ur 1.004 (1.001-1.035); Urobilinogen Urine 0.2 mg/dL (<2.0)
[2025-03-24 13:15] LABS: Ammonia 20 umol/L (9-30)
--- OUTSIDE RECORDS SUMMARY | 2025-03-24 13:21 | XMS_ITS | Continuity of Care Document ---
Author Organization [facility] Address [address] [place] [address] [place] [address] Phone Care Team Providers Care Net C Developer Name Role Phone Burrows OD, Wilberto Unavailable Unavailable Procedures Procedure Date Eye Exam Established Pt Office/outpatient Visit, Est Office/outpatient Visit, New Advance Directives Directive Yes / No Effective Date File Name No Information Encounters Encounter Description Practice Location Reason(s) For Visit Diagnoses Date Provider Providers Copied on Encounter [facility], [address] [place] [address] [address], [place], [place], [id number], tel:[phone] SEC [facility] No Information Jun-2 5-201 0 Burrows OD Wilberto. [address] [facility] , [address], [place], [address], . tel:[phone] Office/outpat ient Visit, [facility], [address] [place] [address] [address], [place], [place], [id number], tel:[phone] SEC [facility] No Information Aug-0 5-201 0 Hina Rosa. [address] [facility] [address], [place], [address], [place]. tel:[phone] Office/outpat ient Visit, [facility], [address] [place] [address] [address], [place], [place], [id number], tel:[phone] SEC [facility] No Information Aug-0 3-201 0 Krishnascalos Venancio. [address], [address], [place]. tel:[phone] Family History Family Member Type Diagnosis Age [...]
--- OUTSIDE RECORDS SUMMARY | 2025-03-24 13:21 | XMS_ITS | Referral Summary ---
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 Gender Identity Not on file Sexual Orientation Not on file Last Filed Vital Signs Vital Sign Reading Time Taken Comments Blood Pressure 132/80 11/28/2023 3:31 PM BAND SAW MARKER Pulse 63 11/28/2023 3:31 PM BAND SAW MARKER Temperature 36.9 C (98.4 F) 11/28/2023 3:31 PM BAND SAW MARKER Respiratory Rate 20 11/28/2023 3:31 PM BAND SAW MARKER Oxygen Saturation 97% 11/28/2023 3:31 PM BAND SAW MARKER Inhaled Oxygen Concentration - - Weight 112 kg (247 lb) 11/28/2023 3:31 PM BAND SAW MARKER Height 185.4 cm (6' 1 ) 11/28/2023 3:31 PM BAND SAW MARKER Body Mass Index 32.59 11/28/2023 3:31 PM BAND SAW MARKER Plan of Treatment Not on file Insurance [facility] CHOICE OOS Care Teams Bolt Maker Relationship Specialty Start Date End Date Unknown, Notinfile PCP - General 11/28/23
--- OUTSIDE RECORDS SUMMARY | 2025-03-24 13:21 | XMS_ITS | Clinical Summary ---
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[employer] Gender Identity Not on file Sexual Orientation Not on file Obstetrics History Last Filed Vital Signs Vital Sign Reading Time Taken Comments Blood Pressure 132/80 11/28/2023 3:31 PM SUPERVISOR [employer] Pulse 63 11/28/2023 3:31 PM SUPERVISOR [employer]ARM Temperature 36.9 C (98.4 F) 11/28/2023 3:31 PM SUPERVISOR [employer]UR[employer] FARM Respiratory Rate 20 11/28/2023 3:31 PM SUPERVISOR [employer]ARM Oxygen Saturation 97% 11/28/2023 3:31 PM SUPERVISOR [employer] Inhaled Oxygen Concentration - - Weight 112 kg (247 lb) 11/28/2023 3:31 PM SUPERVISOR [employer] Height 185.4 cm (6' 1 ) 11/28/2023 3:31 PM SUPERVISOR [employer]ARM Body Mass Index 32.59 11/28/2023 3:31 PM SUPERVISOR [employer]ARM Plan of Treatment Health Maintenance Due Date [...] patient's age to complete this topic Insurance [facility] CHOICE OOS Member Subscriber Plan / Payer (Ef fective 2022-Present) Name:Vitor Davidson Relation to Subscriber:Self Name:Vitor Davidson Payer ID:[id number] (IC) Type: SEB Address: [facility] [address] [place] [id number] Care Teams Tube Maker Relationship Specialty Start Date End Date Unknown, Notinfile PCP - General 11/28/23
--- OUTSIDE RECORDS SUMMARY | 2025-03-24 13:21 | XMS_ITS | Clinical Summary ---
Author Organization [facility] Address [address] [place] [address] Care Team Providers Care Clinical Support Associate Name Role Phone Lebron Brown MD Primary Care Provider [phone] Source Comments [facility],non-owned Affiliates and Associated Physician Practices is amultiple site organization consisting of ambulatory clinics and hospital sitesin [place], [place], [place] and [place]. This disclosure is being madepursuant to the Care Everywhere program and may not contain all information available regarding this patient. Last updated 18.[facility] Social History Tobacco Use Types Packs/Day Years [...] complete this topic Insurance ANTH Care Teams Clinical Support Associate Relationship Specialty Start Date End Date Lebron Brown MD [facility] [place] [address] PCP - General Family Medicine 04/06/18
[2025-03-24 13:24] LABS: Alanine Aminotransferase 453 U/L (6-50); Albumin Level 4.6 g/dL (3.5-5.1); Alkaline Phosphatase 442 U/L (38-126); Anion Gap 14 mmol/L (4-12); Aspartate Amino Transferase 215 U/L (17-59); Blood Urea Nitrogen 14 mg/dL (9-20); Calcium 9.5 mg/dL (8.4-10.2); Carbon Dioxide 21 mmol/L (22-30); Chloride 98 mmol/L (98-107); Estimated CRCL calculation 96 ml/min; Estimated Glomerular Filt Rate > 60; Glucose 109 mg/dL (65-110); Lipase 139 U/L (23-300); Potassium 3.5 mmol/L (3.4-5.0); Sodium 133 mmol/L (137-145)
--- NOTE | 2025-03-24 13:36 | ED_ITS ---
HPI - Recheck/Abnormal Lab/Rx General Chief Complaint: Recheck/Abnormal Lab/Rx Stated Complaint: having problems with bilirubin Time Seen by Provider: 03/24/25 13:10 History of Present Illness HPI narrative: 59-year-old male with history of asthma presenting to the emergency room with chief complaint of worsening nausea, fatigue, and diffuse itchiness and skin discoloration. He knows that over last week he has had rapidly developing skin discoloration all his symptoms. He went to his primary physician Dr. Brown who ordered laboratory studies and a CT scan of the abdomen pelvis. CT scan was concerning for dilated intrahepatic ducts and biliary ducts with need for ERCP follow-up. His primary care provider called him yesterday to establish this but did not give him a date or time. Patient tried to call the office this morning but was told his physician was out of town for the weekend. He is concerned that he is having worsening symptoms and came to the emergency department at the request of the office staff. Patient states that he has not had any injury or trauma, no history of hepatitis or cirrhosis to his knowledge. States that he does drink occasionally 3-5 beers per day. Denies any drug use or illicit substance use. No chest pain, shortness a breath, abdominal pain, fever, chills, diarrhea, constipation, vomiting. No recent illnesses. He was otherwise in his normal state of health. Related Data Home Medications ?Medication ?Instructions ?Recorded ?Confirmed ?Last Taken ?Type albuterol sulfate 90 mcg/actuation 90 mcg inhalation PRN PRN 03/15/24 03/15/24 Unknown History aerosol inhaler Shortness Of Breath Or Wheezing budesonide-formoterol HFA 160 2 puff inhalation PRN PRN 03/15/24 03/15/24 Unknown History mcg-4.5 mcg/actuation aerosol Shortness Of Breath Or Wheezing inhaler (Symbicort) hydroxyzine HCl 25 mg tablet 25 mg PO DAILY 03/15/24 03/15/24 Unknown History pantoprazole 40 mg tablet,delayed 40 mg PO DAILY 03/15/24 03/15/24 Unknown History release Allergies Allergy/AdvReac Type Severity Reaction Status Date / Time amoxicillin Allergy Severe RASH/HIVES Verified 01/22/25 12:04 Review of Systems 2 Review of Systems: As reviewed above in HPI [facility] Past Medical History Medical History Asthma Surgical History Surgical History No pertinent past surgical history Family History Family History Mother Family history non-contributory Social History Social History Substance use: never Living arrangements: with family Gender identity (if verbalized by the patient): Male Sexual Orientation (if Verbalized by the Patient): Straight or Heterosexual Spiritual care concerns: No Exam 2 Narrative: GENERAL: Jaundiced, not any acute distress HEAD: [Normocephalic, atraumatic.] EYES: Jaundiced eyes, pupils are equal reactive, extraocular movements are intact ENT: Nares clear, no rhinorrhea or epistaxis. Mucous membranes moist. NECK: Supple. CHEST: [Clear to auscultation. No respiratory distress.] HEART: [Regular rate and rhythm]. No murmur heard. [Normal peripheral pulses.] ABDOMEN: Protuberant but soft and nontender, no peritonitis, [No rigidity or guarding] EXTREMITIES: Normal range of motion. [No edema.] SKIN: Jaundiced skin throughout chest back upper and lower extremities and face, eyes NEURO: [No focal deficits]. Alert and oriented [x3.]. No asterixis. Answering all questions appropriately. Moving all extremities and ambulatory. PSYCH: [Normal mood and affect.] Course Vital Signs Vital signs: Vital Signs Temperature 36.6 C 03/24/25 12:42 Pulse Rate 89 03/24/25 12:42 Respiratory Rate 16 03/24/25 12:42 Blood Pressure 136/79 03/24/25 12:42 Pulse Oximetry 97 03/24/25 12:42 Temperature 36.6 C 03/24/25 12:42 Pulse Rate 89 03/24/25 12:42 Respiratory Rate 16 03/24/25 12:42 Blood Pressure 136/79 03/24/25 12:42 Pulse Oximetry 97 03/24/25 12:42 MDM - Recheck/Abnormal Lab/Rx MDM Narrative Medical decision making narrative: 59-year-old male with a history of asthma presenting to the emergency department for evaluation of jaundice and nausea, fatigue, weakness. Symptoms rapidly progressed over the last week. No history of cirrhosis or liver disease, jaundice in the past. He had an outpatient CT scan done with his PCP that showed dilated intrahepatic and CBD. Patient does show significant jaundice all over his body and eyes. He is hemodynamically stable. He is alert oriented x3 but is slow to respond to questioning. Suspicion presently is for obstructive jaundice versus hemolytic jaundice versus other causes such as infectious process less likely. Your he had an outpatient CT scan so no need for repeat imaging at this time. The imaging were reviewed from previous study. Laboratory studies were obtained including CBC, CMP, lipase, type and screen, ammonia level to rule out hepatic encephalopathy. Workup shows no leukocytosis or significant anemia. Normal platelet count. Electrolytes are unremarkable, normal renal function, normal glucose. LFTs are significant elevated with a bilirubin of 22, AST of 215, ALT of 453, alk-phos 442. Normal ammonia and normal lipase. I discussed the case with the on-call subsea engineer Dr. Maher who recommended an MRCP and he will be evaluating the patient today for potential ERCP. Spoke to the hospitalist team currently being covered by Gisselle the mid- level provider who accepted the patient to a [facility] bed. Patient was made aware of the plan and agreeable to admission. Patient was provide Zofran and p.r.n. medications ordered. Medical Records Attestation: I reviewed the patient's medical records. Lab Data Attestation: I reviewed the patient's lab results. 03/24/25 13:00 03/24/25 12:59 Labs: Lab Results 03/24/25 03/24/25 03/24/25 Range/Units 12:58 12:59 13:00 WBC 8.8 (4.5-10.0) K/mm3 RBC 4.18 L (4.6-6.20) M/mm3 Hgb 13.2 L (14.0-18.0) g/dL Hct 37.1 L (42.0-52.0) % MCV 88.8 (80-100) fl MCH 31.6 (26-34) pg MCHC 35.6 (32-36) g/dl RDW 14.5 (11.5-14.5) % Plt Count 369 (150-375) k/mm3 MPV 9.2 (7.4-10.4) fl Immature Gran % (Auto) 2.1 H (0-0.5) % Neut % (Auto) 68.7 (45.5-73.1) % Lymph % (Auto) 11.6 L (18.3-44.2) % Cochran % (Auto) 11.8 H (2.6-8.5) % Eos % (Auto) 4.2 (0-4.4) % Baso % (Auto) 1.6 H (0.2-1.2) % Lymph # (Auto) 1.02 (0.9-3.2) K/mm3 Cochran # (Auto) 1.0 H (0.1-0.6) K/mm3 Eos # (Auto) 0.4 H (0-0.3) K/mm3 Baso # (Auto) 0.1 (0.0-0.1) K/mm3 Abs Immat Gran (auto) 0.18 H (0.00-0.031) K/mm3 Absolute Neuts (auto) 6.0 (1.3-6.7) K/mm3 Absolute Nucleated RBC 0.000 (0.0-0.012) K/mm3 Nucleated RBC % 0.0 (0.0-0.2) % Sodium 133 L (137-145) mmol/L Potassium 3.5 (3.4-5.0) mmol/L Chloride 98 (98-107) mmol/L Carbon Dioxide 21 L (22-30) mmol/L Anion Gap 14 H (4-12) mmol/L BUN 14 (9-20) mg/dL Creatinine 0.92 (0.7-1.3) mg/dL Estim Creat Clear Calc 96 ml/min Estimated GFR > 60 (59 - ) Glucose 109 (65-110) mg/dL Calcium 9.5 (8.4-10.2) mg/dL Total Bilirubin 22.0 H (0.2-1.3) mg/dL AST 215 H (17-59) U/L ALT 453 H (6-50) U/L Alkaline Phosphatase 442 H (38-126) U/L Ammonia 20 (9-30) umol/L Total Protein 8.0 (6.3-8.2) g/dL Albumin 4.6 (3.5-5.1) g/dL Lipase 139 (23-300) U/L Urine Color Dark yellow (Yellow) Urine Appearance Clear (Clear) Urine pH 7.0 (5.0-9.0) Ur Specific [place] 1.004 (1.001-1.035) Urine Protein Negative (Negative) mg/dL Urine Glucose (UA) Negative (Negative) mg/dL Urine Ketones Negative (Negative) mg/dL Ur Blood (Man) Negative (Negative) Urine Nitrate Negative (Negative) Urine Bilirubin 2+ H (Negative) Urine Urobilinogen 0.2 (<2.0) mg/dL Leukocyte Esterase Rfl Negative (Negative) ANTHONY/UL Imaging Data Attestation: I personally reviewed and interpreted this imaging study as follows: My impression: IMPRESSION: 1. Dilated intrahepatic biliary ducts and CBD. ERCP is advised for evaluation of the sphincter of Oddi. Distended gallbladder with no stones. 2. No evidence of appendicitis, diverticulitis or intestinal obstruction. 3. Slightly thickened segment of the transverse colon near to the splenic flexure. Follow-up advised. Critical Care Time Critical Care Time Critical Care Time: Yes Total Critical Care Time: 35 Discharge Plan Discharge Clinical Impression: Jaundice, obstructive, intrahepatic, Elevated LFTs Patient Disposition: Still a Patient Condition: Stable Patient Language: Azerbaijani Prescriptions: No Action pantoprazole 40 mg tablet,delayed release (DR/EC) 40 mg PO DAILY hydroxyzine HCl 25 mg tablet 25 mg PO DAILY albuterol sulfate 90 mcg/actuation HFA aerosol inhaler 90 mcg INHALATION PRN PRN (Reason: Shortness Of Breath Or Wheezing) budesonide-formoterol [Symbicort] 160-4.5 mcg/actuation HFA aerosol inhaler 2 puff INHALATION PRN PRN (Reason: Shortness Of Breath Or Wheezing) albuterol sulfate 2.5 mg /3 mL (0.083 %) solution for nebulization 2.5 mg inhalation Q6H Qty: 90 0RF ipratropium bromide 0.02 % solution 2.5 ml inhalation Q6H PRN (Reason: shortness of breath or wheezing) Qty: 75 0RF azithromycin 250 mg tablet See Rx Instructions .ROUTE .COMPLEX Qty: 6 0RF Rx Instructions: For 250 mg dose pack: take 500 mg today (day 1), then 250 mg for 4 days (days 2-5) cefdinir 300 mg capsule 300 mg PO Q12H Qty: 20 0RF prednisone 50 mg tablet 50 mg PO DAILY Qty: 5 0RF albuterol sulfate 2.5 mg /3 mL (0.083 %) solution for nebulization 2.5 mg inhalation Q6H Qty: 90 0RF ipratropium bromide 0.02 % solution 0.5 mg inhalation Q6H PRN (Reason: shortness of breath or wheezing) Qty: 75 0RF Follow-up/Referrals: Stephanie,Lebron Dong MD [Primary Care Provider] - Time of Disposition: 13:58
[2025-03-24 13:46] VITALS: BP 131/113; PULSE 66; RESP 17; O2SAT 95
[2025-03-24 15:13] VITALS: BMI 31.6
--- NOTE | 2025-03-24 15:14 | ADMGEN ---
This patient, Vitor Davidson, was admitted to Medical Room 347-. Patient/family oriented to hospital policies and general routines including ID bracelet, bed and alarms, visiting hours, pain management, procedures, bathroom and other care routines, personal items, smoking policy, room service/diet, and visiting hours. Information on how to activate the Rapid Response Team has been discussed. Patient/Family are encouraged to report perceived risks to care and to ask questions if they do not understand what they are told or what they should do.
--- NOTE | 2025-03-24 17:06 | PM.IMHP ---
H&P: HPI History of Present Illness Date/Time: 03/24/25 17:06 Chief Complaint: Abnormal Lab Narrative: 59 y/o M with PMH of asthma, COPD, psoriasis, anxiety, GERD, and BPH presents here with abnormal outpatient labs. The patient presents here on 03/24 for further evaluation of abnormal outpatient labs. He reports he has been experiencing nausea, fatigue, new skin discoloration, mild lower abdominal pain, diarrhea, and diffuse itching for the past week. He reports the skin discoloration has been rapidly worsening over the past week - jaundiced. He initially sought evaluation through his primary provider, Dr. Brown, who ordered lab work and a CT scan of the abdomen/pelvis. CT was concerning for dilated intrahepatic ducts and biliary ducts and his bilirubin came back abnormal. His PCP contacted him with these results and recommended an ERCP as follow-up. Patient is unsure when this would be scheduled and his provider is now out of town for the weekend which prompted him to seek care at the emergency department. He denies any history of hepatitis, cirrhosis, injury/trauma, or recreational drug use. He reports ETOH use: 3-6 beers daily. The patient denies fever, chills, body aches, chest pain, shortness of breath, constipation, or recent illness. Last colonoscopy was approx 3-4 months ago, 3 polyps and they were benign. Initial VS at presentation: ED workup showed: No leukocytosis, hemoglobin 13.2, sodium 133, creatinine 0.92 and GFR >60, total bilirubin 22.0, AST 215, ALT 453, alk-phos 442, ammonia 20, lipase 139, and UA showed 2+ bilirubin otherwise unremarkable. CT of the abdomen/pelvis showed dilated intrahepatic biliary ducts and CBD (ERCP advised), distended gallbladder with no stones, no evidence of appendicitis/diverticulitis/in tonsil instruction, slightly thickened segment of transverse colon near the splenic flexure. Review of Systems Review of Systems: All systems reviewed & are unremarkable except as noted in HPI and below [facility] Past Medical History Medical History (Updated 03/24/25 @ 17:25 by Chel Canales, MICHELLE) BPH (benign prostatic hyperplasia) Anxiety Psoriasis Hernia GERD (gastroesophageal reflux disease) Pre-hypertension On low-dose lisinopril as of March of 2025 COPD (chronic obstructive pulmonary disease) Asthma Surgical History Surgical History History of left knee surgery No pertinent past surgical history Family History Family History Mother Family history non-contributory Social History Social History Smoking status: Former smoker Alcohol intake: current Substance use: never Do You Feel Safe in your Home?: Yes Lack of Transportation: No Lack of Food: Never True Current Housing: I Have Housing Concerned About Future Housing: No Difficulty Paying Gas/Electric Bills: No Difficulty Paying for Meds: No Currently Unemployed: No Education: Decline to Answer Difficulty w/ Childcare or Family Care: No Living arrangements: with family Gender identity (if verbalized by the patient): Male Sexual Orientation (if Verbalized by the Patient): Straight or Heterosexual Spiritual care concerns: No Meds Home Medications and Allergies Home Medications ?Medication ?Instructions ?Recorded ?Confirmed ?Type albuterol sulfate 2.5 mg/3 mL 2.5 mg (3 mL) inhalation Q6H #90 mL 03/15/24 03/24/25 Rx (0.083 %) solution for nebulization albuterol sulfate 90 mcg/actuation 90 mcg inhalation PRN PRN 03/15/24 03/24/25 History aerosol inhaler Shortness Of Breath Or Wheezing budesonide-formoterol HFA 160 2 puff inhalation PRN PRN 03/15/24 03/24/25 History mcg-4.5 mcg/actuation aerosol Shortness Of Breath Or Wheezing inhaler (Symbicort) hydroxyzine HCl 25 mg tablet 25 mg PO DAILY 03/15/24 03/24/25 History ipratropium bromide 0.02 % 2.5 ml inhalation Q6H PRN 03/15/24 03/24/25 Rx solution for inhalation shortness of breath or wheezing #75 mL pantoprazole 40 mg tablet,delayed 40 mg PO DAILY 03/15/24 03/24/25 History release lisinopril 10 mg tablet 10 mg PO DAILY 03/24/25 03/24/25 History oxybutynin chloride 15 mg 15 mg PO DAILY 03/24/25 03/24/25 History tablet,extended release 24 hr sildenafil (pulm.hypertension) 20 20 mg PO Q24H 03/24/25 03/24/25 History mg tablet Allergies Allergy/AdvReac Type Severity Reaction Status Date / Time amoxicillin Allergy Severe RASH/HIVES Verified 03/24/25 15:56 Vital Signs Vital Signs - 24 hr 03/24/25 12:42 03/24/25 13:46 Temperature 97.8 F Pulse Rate 89 66 Respiratory Rate 16 17 Blood Pressure 136/79 131/113 H Pulse Oximetry 97 95 Exam Const: General: comfortable and no acute distress Other: , male, nontoxic appearance HENMT: Face/Nose/Sinus: Normal nares present Mouth: Yes moist mucous membranes Eyes: General: appearance normal, both eyes and all related structures Sclera: scleral abnormality (+icterus bilaterally) Pupils: Equal, round and reactive pupils present EOM: EOMs intact bilaterally Resp: Effort & Inspection: normal respiratory effort Auscultation: clear to auscultation bilaterally Cardio: Rate: regular rate Rhythm: regular rhythm Other: S1-S2 present without murmur, rub, ectopy GI: Other: Abdomen soft, nondistended, nontender. Normoactive bowel sounds in all quadrants. Skin: General skin exam: normal color and no rashes or lesions noted Wounds: no wounds Neuro: Speech: normal speech Motor exam (neuro): 5/5 motor strength present throughout Sensory Exam: normal sensation Other: A&O x4 Extrem: General: normal to inspection Psych: Mental Status: mental status grossly normal Affect: normal affect Other: Good insight and judgment, pleasant H&P: Results Labs Labs: Short CBC 03/24/25 Range/Units 13:00 WBC 8.8 (4.5-10.0) K/mm3 Hgb 13.2 L (14.0-18.0) g/dL Hct 37.1 L (42.0-52.0) % Plt Count 369 (150-375) k/mm3 BMP 03/24/25 12:59 Sodium 133 L Potassium 3.5 Chloride 98 Carbon Dioxide 21 L BUN 14 Creatinine 0.92 Glucose 109 Calcium 9.5 Liver Function 03/24/25 Range/Units 12:59 Total Bilirubin 22.0 H (0.2-1.3) mg/dL AST 215 H (17-59) U/L ALT 453 H (6-50) U/L Alkaline Phosphatase 442 H (38-126) U/L Albumin 4.6 (3.5-5.1) g/dL Urine 03/24/25 Range/Units 12:58 Urine Color Dark yellow (Yellow) Urine Appearance Clear (Clear) Urine pH 7.0 (5.0-9.0) Ur Specific [place] 1.004 (1.001-1.035) Urine Protein Negative (Negative) mg/dL Urine Glucose (UA) Negative (Negative) mg/dL Assessment and Plan Assessment and plan (1) Jaundice, obstructive, intrahepatic: Code(s): K83.1 - Obstruction of bile duct Status: Acute Assessment and Plan: CT of the abdomen/pelvis, 03/24: 1. Dilated intrahepatic biliary ducts and CBD. ERCP is advised for evaluation of the sphincter of Oddi. Distended gallbladder with no stones. 2. No evidence of appendicitis, diverticulitis or intestinal obstruction. 3. Slightly thickened segment of the transverse colon near to the splenic flexure. Follow-up advised. Total bilirubin 22. No previous history of hepatitis, liver disease, or previous episodes of jaundice. GI consulted, awaiting formal recs. ED provider spoke with on-call weatherization and housing inspector (Dr. Maher) who recommended an MRCP, possibility for ERCP. Trend LFTs and total bilirubin. Monitor mental status - neurological checks q.6, slow to respond but A&O x4. Check hepatitis panel. (2) Elevated LFTs: Code(s): R79.89 - Other specified abnormal findings of blood chemistry Status: Acute Assessment and Plan: Total bilirubin 22, AST 215, ALT 453, alk-phos 442. Ammonia WNL, 20. CT findings concerning for obstructive pathology, see above. Monitor. Plan Diet: NPO GI Prophylaxis: Pantoprazole IV DVT Prophylaxis: SCDs IV fluids: LR at 100 mL/hour x1 L Lines/Tubes: Peripheral IV Code Status: Full code Quality VTE Prophylaxis VTE prophylaxis: mechanical ordered Hospitalist [facility] Advance Care Plan I have confirmed that the patient's Advanced Care Plan is present, code status is documented, or surrogate decision maker is listed in patient medical record.: Yes Medication Reconciliation I have utilized all available resources to obtain, update and review the patients current medications (includes all prescriptions, OTC, herbals, cannabis, and nutritional supplements).: Yes
[2025-03-24 17:08] VITALS: PULSE 66; RESP 17; O2SAT 95
[2025-03-24] MEDS: LACTATED RINGERS 1,000 ML 100 ML IV CONT (18:57)
[2025-03-24] MEDS: FLUTICASONE/SALMETEROL 115-21 MCG INHALER 1 PUFF 2 PUFF INHALATION (20:14)
[2025-03-24 20:20] VITALS: PULSE 64; O2SAT 94
[2025-03-24 20:44] VITALS: BP 125/69; PULSE 69; RESP 18; TEMP 36.3; O2SAT 97
[2025-03-24] MEDS: diphenhydrAMINE HCl INJ 50 MG/ML VIAL 25 MG IV PUSH (20:45)
[2025-03-25 05:05] VITALS: BP 120/63; PULSE 61; RESP 16; TEMP 36.1; O2SAT 96
[2025-03-25 05:50] LABS: Basophils Absolute Auto 0.1 K/mm3 (0.0-0.1); Basophils Percent Auto 1.6 % (0.2-1.2); Eosinophils Absolute Auto 0.4 K/mm3 (0-0.3); Eosinophils Percent Auto 4.8 % (0-4.4); Hematocrit 34.7 % (42.0-52.0); Hemoglobin 12.3 g/dL (14.0-18.0); Immature Granulocyte Absolute 0.19 K/mm3 (0.00-0.031); Immature Granulocyte Percent A 2.6 % (0-0.5); Lymphocytes Absolute Auto 0.85 K/mm3 (0.9-3.2); Lymphocytes Percent Auto 11.7 % (18.3-44.2); Mean Corpuscular HGB Conc 35.4 g/dl (32-36); Mean Corpuscular Hemoglobin 31.5 pg (26-34); Mean Platelet Volume 9.2 fl (7.4-10.4); Monocytes Absolute Auto 0.9 K/mm3 (0.1-0.6); Monocytes Percent Auto 12.5 % (2.6-8.5); Neutrophils Absolute Auto 4.9 K/mm3 (1.3-6.7); Neutrophils Percent Auto 66.8 % (45.5-73.1); Platelet Count Result 334 k/mm3 (150-375); Red Cell Distribution Width 14.9 % (11.5-14.5); White Blood Count 7.3 K/mm3 (4.5-10.0)
[2025-03-25 06:01] LABS: Alanine Aminotransferase 389 U/L (6-50); Albumin Level 4.1 g/dL (3.5-5.1); Alkaline Phosphatase 440 U/L (38-126); Anion Gap 12 mmol/L (4-12); Aspartate Amino Transferase 183 U/L (17-59); Blood Urea Nitrogen 13 mg/dL (9-20); Carbon Dioxide 23 mmol/L (22-30); Chloride 99 mmol/L (98-107); Estimated CRCL calculation 96 ml/min; Estimated Glomerular Filt Rate > 60; Glucose 103 mg/dL (65-110); Potassium 3.3 mmol/L (3.4-5.0); Sodium 134 mmol/L (137-145)
[2025-03-25 06:10] LABS: Bilirubin,Total 22.6 mg/dL (0.2-1.3)
[2025-03-25 06:30] LABS: Hepatitis B Surface Antigen Negative (Negative)
[2025-03-25 06:36] LABS: HAV RESULT Negative (Negative); Hepatitis B Core IgM Result Negative (Negative)
[2025-03-25 06:47] LABS: Hepatitis C Virus Antibody Negative (Negative)
[2025-03-25] MEDS: oxyBUTYnin CHLORIDE XL 5 MG TAB.ER.24 15 MG PO (08:53)
[2025-03-25] MEDS: lisinopriL 10 MG TABLET PO (08:53)
[2025-03-25] MEDS: PANTOPRAZOLE 40 MG TABLET PO (08:54)
[2025-03-25] MEDS: FLUTICASONE/SALMETEROL 115-21 MCG INHALER 1 PUFF 2 PUFF INHALATION (08:59)
[2025-03-25 09:00] VITALS: O2SAT 96
--- NOTE | 2025-03-25 10:20 | P.PNIM_ITS ---
Progress Note: A&P Assessment and Plan (1) Jaundice, obstructive, intrahepatic: Code(s): K83.1 - Obstruction of bile duct Status: Acute Assessment and Plan: CT of the abdomen/pelvis, 03/24: 1. Dilated intrahepatic biliary ducts and CBD. ERCP is advised for evaluation of the sphincter of Oddi. Distended gallbladder with no stones. 2. No evidence of appendicitis, diverticulitis or intestinal obstruction. 3. Slightly thickened segment of the transverse colon near to the splenic flexure. Follow-up advised. Total bilirubin 22. No previous history of hepatitis, liver disease, or previous episodes of jau ndice. GI consulted, awaiting formal recs. ED provider spoke with on-call purchasing and claims supervisor (Dr. Maher) who recommended an MRCP, possibility for ERCP. Trend LFTs and total bilirubin. Monitor mental status - neurological checks q.6, slow to respond but A&O x4. Check hepatitis panel. Discussed with GI- pt will need further eval with endoscopic ultrasound. [facility] accepted pt (DR Mcfarlane), with GI consult. Awaiting for bed. (2) Elevated LFTs: Code(s): R79.89 - Other specified abnormal findings of blood chemistry Status: Acute Assessment and Plan: Total bilirubin 22, AST 215, ALT 453, alk-phos 442. Ammonia WNL, 20. CT findings concerning for obstructive pathology, see above. Monitor. Plan Diet: NPO GI Prophylaxis: Pantoprazole IV DVT Prophylaxis: SCDs IV fluids: LR at 100 mL/hour x1 L Lines/Tubes: Peripheral IV Code Status: Full code Time Spent With Patient Time with patient: 25 - 35 minutes Subjective Date/time seen: 03/25/25 10:20 Interval history: 59 y/o M with PMH of asthma, COPD, psoriasis, anxiety, GERD, and BPH presents here with abnormal outpatient labs. Present here per pcp direction 03/24 for further evaluation of abnormal outpatient labs. He reports he has been experiencing nausea, fatigue, new skin discoloration, mild lower abdominal pain, diarrhea, and diffuse itching for the past week. He reports the skin discoloration has been rapidly worsening over the past week - jaundiced. He initially sought evaluation through his primary provider, Dr. Brown, who ordered lab work and a CT scan of the abdomen/pelvis. C T was concerning for dilated intrahepatic ducts and biliary ducts and his bilirubin came back abnormal. His PCP contacted him with these results and recommended an ERCP as follow-up. Patient is unsure when this would be scheduled and his provider is now out of town for the weekend which prompted him to seek care at the emergency department. He denies any history of hepatitis, cirrhosis, injury/trauma, or recreational drug use. He reports ETOH use: 3-6 beers daily. The patient denies fever, chills, body aches, chest pain, shortness of breath, constipation, or recent illness. Last colonoscopy was approx 3-4 months ago, 3 polyps and they were benign. Initial VS at presentation: ED workup showed: No leukocytosis, hemoglobin 13.2, sodium 133, creatinine 0.92 and GFR >60, total bilirubin 22.0, AST 215, ALT 453, alk-phos 442, ammonia 20, lipase 139, and UA showed 2+ bilirubin otherwise unremarkable. CT of the abdomen/pelvis showed dilated intrahepatic biliary ducts and CBD (ERCP advised), distended gallbladder with no stones, no evidence of appendicitis/diverticulitis/in tonsil instruction, slightly thickened segment of transverse colon near the splenic flexure. GI consulted. recommendation to transfer pt for further eval with endoscopic ultrasound. Called [facility] pt's insurance is out of network. Called [facility] GI accepted pt as a consult. Waiting for hospital team to accept pt. RN is updated. Pt is updated. [facility] GI accepted pt as a consult. Called and discussed with hospital team, DR Rodriguez who accepted pt. Waiting for bed. Pt remains stable. If fever,chills, any elevated in WBC, liver panel- will need to call back to speed up the transfer. Review of Systems Review of Systems: All systems reviewed & are unremarkable except as noted in HPI and below Exam Const: General: comfortable and no acute distress Other: , male, nontoxic appearance HENMT: Face/Nose/Sinus: Normal nares present Mouth: Yes moist mucous membranes Eyes: General: appearance normal, both eyes and all related structures Sclera: scleral abnormality (+icterus bilaterally) Pupils: Equal, round and reactive pupils present EOM: EOMs intact bilaterally Resp: Effort & Inspection: normal respiratory effort Auscultation: clear to auscultation bilaterally Cardio: Rate: regular rate Rhythm: regular rhythm Other: S1-S2 present without murmur, rub, ectopy GI: Other: Abdomen soft, nondistended, nontender. Normoactive bowel sounds in all quadrants. Skin: General skin exam: normal color and no rashes or lesions noted Wounds: no wounds Neuro: Cranial nerves: Yes Equal, round and reactive pupils present Speech: normal speech Motor exam (neuro): 5/5 motor strength present throughout Sensory Exam: normal sensation Other: A&O x4 Extrem: General: normal to inspection Psych: Mental Status: mental status grossly normal Affect: normal affect Other: Good insight and judgment, pleasant Objective Data Vital Signs Vital Signs: Vital Signs - 24 hr 03/24/25 12:42 03/24/25 13:46 03/24/25 17:08 Temperature 97.8 F Pulse Rate 89 66 66 Respiratory Rate 16 17 17 Blood Pressure 136/79 131/113 H Pulse Oximetry 97 95 95 Oxygen Delivery Room Air Fraction of Inspired Oxygen 03/24/25 20:00 03/24/25 20:20 03/24/25 20:44 Temperature 97.4 F L Pulse Rate 64 69 Respiratory Rate 18 Blood Pressure 125/69 Pulse Oximetry 94 97 Oxygen Delivery Room Air Room Air Fraction of Inspired Oxygen 21 03/25/25 05:05 03/25/25 09:00 Temperature 97 F L Pulse Rate 61 Respiratory Rate 16 Blood Pressure 120/63 Pulse Oximetry 96 96 Oxygen Delivery Room Air Fraction of Inspired Oxygen Intake/Output Intake/Output: Intake & Output 03/22/25 03/23/25 03/24/25 03/25/25 23:59 23:59 23:59 23:59 Intake Total 1000 Balance 1000 Meds/Results Medications: Active Medications Generic Name Dose Route Start Last Admin Trade Name Freq PRN Reason Stop Dose Admin Acetaminophen 650 mg 03/24/25 13:49 Acetaminophen 325 Mg Tablet PO Q4H PRN Mild Pain (1-3) or Fever Albuterol 1 puff 03/24/25 17:23 Albuterol Sulfate (*Sp) Aerosol 1 Puff INHALATION PRN PRN Shortness Of Breath Or Wheezing Albuterol 2.5 mg 03/24/25 20:00 Albuterol Sulfate Neb 2.5 Mg/3 Ml Inh INHALATION Q6HRT PRN Shortness Of Breath Or Wheezin Hydroxyzine HCl 25 mg 03/25/25 09:00 Hydroxyzine Hcl 25 Mg Tablet PO DAILY ARACELI Ipratropium Hickman 0.5 mg 03/24/25 17:23 Ipratropium Br 0.02% Inh Soln 0.5 Mg/2.5 Ml Vial INHALATION Q6HRT PRN shortness of breath or wheezing Lisinopril 10 mg 03/25/25 09:00 03/25/25 08:53 Lisinopril 10 Mg Tablet PO 10 mg DAILY ARACELI Administration Lorazepam 1 mg 03/24/25 20:05 Lorazepam Inj (*Crx) 2 Mg/Ml Vial IV PUSH ONCE PRN pre-medicate for MRI Non-Formulary Medication 20 mg 03/24/25 17:30 03/24/25 18:57 Sildenafil (Pulm.Hypertension) PO 04/23/25 17:29 Not Given Q24H ARACELI Ondansetron HCl 4 mg 03/24/25 13:49 Ondansetron Inj 4 Mg/2 Ml Vial IV PUSH Q4H PRN Nausea Oxybutynin Chloride 15 mg 03/25/25 09:00 03/25/25 08:53 Oxybutynin Chloride Xl 5 Mg Tab.Er.24 PO 15 mg DAILY ARACELI Administration Pantoprazole Sodium 40 mg 03/25/25 09:00 03/25/25 08:54 Pantoprazole 40 Mg Tablet PO 40 mg DAILY ARACELI Administration Fluticasone/Salmeterol 2 puff 03/24/25 20:00 03/25/25 08:59 Fluticasone/Salmeterol 115-21 Mcg Inhaler 1 Puff INHALATION 2 puff Q12HRT ARACELI Administration Radiology Results: ITS Impressions MRCP 03/25/25 09:07 IMPRESSION: 1. Moderate intra and extra hepatic biliary ductal dilation extending to the ampulla where there is no evident obstructing stone or mass. Labs Labs: Laboratory Results - last 24 hr 03/24/25 03/24/25 03/24/25 12:58 12:59 13:00 WBC 8.8 RBC 4.18 L Hgb 13.2 L Hct 37.1 L MCV 88.8 MCH 31.6 MCHC 35.6 RDW 14.5 Plt Count 369 MPV 9.2 Immature Gran % (Auto) 2.1 H Neut % (Auto) 68.7 Lymph % (Auto) 11.6 L [place] % (Auto) 11.8 H Eos % (Auto) 4.2 Baso % (Auto) 1.6 H Lymph # (Auto) 1.02 [place] # (Auto) 1.0 H Eos # (Auto) 0.4 H Baso # (Auto) 0.1 Abs Immat Gran (auto) 0.18 H Absolute Neuts (auto) 6.0 Absolute Nucleated RBC 0.000 Nucleated RBC % 0.0 Sodium 133 L Potassium 3.5 Chloride 98 Carbon Dioxide 21 L Anion Gap 14 H BUN 14 Creatinine 0.92 Estim Creat Clear Calc 96 Estimated GFR > 60 Glucose 109 Calcium 9.5 Total Bilirubin 22.0 H AST 215 H ALT 453 H Alkaline Phosphatase 442 H Ammonia 20 Total Protein 8.0 Albumin 4.6 Lipase 139 Urine Color Dark yellow Urine Appearance Clear Urine pH 7.0 Ur Specific Industry 1.004 Urine Protein Negative Urine Glucose (UA) Negative Urine Ketones Negative Ur Blood (Man) Negative Urine Nitrate Negative Urine Bilirubin 2+ H Urine Urobilinogen 0.2 Leukocyte Esterase Rfl Negative Hepatitis A IgM Ab Hep Bs Antigen Hep B Core IgM Ab Hepatitis C Ab Screen 03/25/25 05:35 WBC 7.3 RBC 3.90 L Hgb 12.3 L Hct 34.7 L MCV 89.0 MCH 31.5 MCHC 35.4 RDW 14.9 H Plt Count 334 MPV 9.2 Immature Gran % (Auto) 2.6 H Neut % (Auto) 66.8 Lymph % (Auto) 11.7 L [place] % (Auto) 12.5 H Eos % (Auto) 4.8 H Baso % (Auto) 1.6 H Lymph # (Auto) 0.85 L [place] # (Auto) 0.9 H Eos # (Auto) 0.4 H Baso # (Auto) 0.1 Abs Immat Gran (auto) 0.19 H Absolute Neuts (auto) 4.9 Absolute Nucleated RBC 0.000 Nucleated RBC % 0.0 Sodium 134 L Potassium 3.3 L Chloride 99 Carbon Dioxide 23 Anion Gap 12 BUN 13 Creatinine 0.92 Estim Creat Clear Calc 96 Estimated GFR > 60 Glucose 103 Calcium 9.0 Total Bilirubin 22.6 H AST 183 H ALT 389 H Alkaline Phosphatase 440 H Ammonia Total Protein 8.0 Albumin 4.1 Lipase Urine Color Urine Appearance Urine pH Ur Specific Industry Urine Protein Urine Glucose (UA) Urine Ketones Ur Blood (Man) Urine Nitrate Urine Bilirubin Urine Urobilinogen Leukocyte Esterase Rfl Hepatitis A IgM Ab Negative Hep Bs Antigen Negative Hep B Core IgM Ab Negative Hepatitis C Ab Screen Negative Quality VTE Prophylaxis VTE prophylaxis: mechanical ordered
[2025-03-25] MEDS: polyethylene glycoL 3350 17 GM POWD.PACK PO (11:43)
--- NOTE | 2025-03-25 12:06 | WPDGICN ---
Assessment and Plan Assessment and plan (1) Jaundice of recent onset: Code(s): R17 - Unspecified jaundice Status: Acute Assessment and Plan: mrcp dilated bile duct but did not visualize any tumor, filling defect or stone to explain presentation this is acute onset about 1 week he drinks some alcohol but ast/alt ration is not typical of alcoholic hepatitis, only new medication is Gemtesa, denies acetaminophen hepatitis negative He will need to have EUS at another institution to have better definitive visualization of biliary system and rule out that way any potential obstructive lesion (2) Elevated LFTs: Code(s): R79.89 - Other specified abnormal findings of blood chemistry Status: Acute Assessment and Plan: will get also blood work to assess for AIH, PBC (3) Abnormal CT scan, colon: Code(s): R93.3 - Abnormal findings on diagnostic imaging of other parts of digestive tract Status: Acute Assessment and Plan: incidental finding probably he will need colonoscopy after resolution of jaundice if he has not had a recent one (4) Pruritus: Code(s): L29.9 - Pruritus, unspecified Status: Acute Assessment and Plan: from jaundice (5) Alcohol use: Code(s): F10.90 - Alcohol use, unspecified, uncomplicated Status: Acute (6) Dilated bile duct: Code(s): K83.8 - Other specified diseases of biliary tract Status: Acute GI Consult Note Consult date/time: 03/25/25 12:06 Reason for consult: jaundice, itching HPI: Vitor Davidson is a 59 year old male with history of asthma, HTN, nocturia (most recent medication prescribed is vibegron). He came here after had abnormal outpatient labs. He reports he has been experiencing nausea, fatigue, diarrhea, and diffuse itching for the past week, also noted dark urine. He became jaundice last week, denies fever, weight loss, previous history of hepatitis or sick contacts. His PCP ordered blood work and revealed jaundice. He denies any history of hepatitis, cirrhosis, injury/trauma, or recreational drug use. He reports ETOH use 6 beers daily for 30 years but never had elevated liver enzymes as far as he can tell me. CT scan Dilated intrahepatic biliary ducts and CBD. Distended gallbladder with no stones. No evidence of appendicitis, diverticulitis or intestinal obstruction. Slightly thickened segment of the transverse colon near to the splenic flexure. Follow-up advised. MRCP similar findings but did not find stone or mass in bile duct. Review of Systems Constitutional: Constitutional: Reports fatigue Eyes: Eyes: Denies blurry vision ENT: Reports Normal hearing present Cardiovascular: Cardiovascular: Denies chest pain Respiratory: Respiratory: Denies cough Gastrointestinal: Gastrointestinal: Denies vomiting Genitourinary: Comments: dark urine Musculoskeletal: Musculoskeletal: Denies neck pain Integumentary/Breasts: Comments: jaundice Neurologic: Denies abnormal gait Psychiatric: Psychiatric: Denies behavioral changes [facility] Past Medical History Medical History (Updated 03/25/25 @ 12:12 by Fletcher Basurto MD) Dilated bile duct Alcohol use Pruritus Abnormal CT scan, colon Jaundice of recent onset BPH (benign prostatic hyperplasia) Anxiety Psoriasis Hernia GERD (gastroesophageal reflux disease) Pre-hypertension On low-dose lisinopril as of March of 2025 COPD (chronic obstructive pulmonary disease) Asthma Surgical History Surgical History History of left knee surgery No pertinent past surgical history Family History Family History Mother Family history non-contributory Social History Social History Smoking status: Former smoker Alcohol intake: current Substance use: never Do You Feel Safe in your Home?: Yes Lack of Transportation: No Lack of Food: Never True Current Housing: I Have Housing Concerned About Future Housing: No Difficulty Paying Gas/Electric Bills: No Difficulty Paying for Meds: No Currently Unemployed: No Education: Decline to Answer Difficulty w/ Childcare or Family Care: No Living arrangements: with family Gender identity (if verbalized by the patient): Male Sexual Orientation (if Verbalized by the Patient): Straight or Heterosexual Spiritual care concerns: No Meds Home Medications and Allergies Home Medications ?Medication ?Instructions ?Recorded ?Confirmed ?Type albuterol sulfate 2.5 mg/3 mL 2.5 mg (3 mL) inhalation Q6H #90 mL 03/15/24 03/24/25 Rx (0.083 %) solution for nebulization albuterol sulfate 90 mcg/actuation 90 mcg inhalation PRN PRN 03/15/24 03/24/25 History aerosol inhaler Shortness Of Breath Or Wheezing budesonide-formoterol HFA 160 2 puff inhalation PRN PRN 03/15/24 03/24/25 History mcg-4.5 mcg/actuation aerosol Shortness Of Breath Or Wheezing inhaler (Symbicort) hydroxyzine HCl 25 mg tablet 25 mg PO DAILY 03/15/24 03/24/25 History ipratropium bromide 0.02 % 2.5 ml inhalation Q6H PRN 03/15/24 03/24/25 Rx solution for inhalation shortness of breath or wheezing #75 mL pantoprazole 40 mg tablet,delayed 40 mg PO DAILY 03/15/24 03/24/25 History release lisinopril 10 mg tablet 10 mg PO DAILY 03/24/25 03/24/25 History oxybutynin chloride 15 mg 15 mg PO DAILY 03/24/25 03/24/25 History tablet,extended release 24 hr sildenafil (pulm.hypertension) 20 20 mg PO Q24H 03/24/25 03/24/25 History mg tablet Allergies Allergy/AdvReac Type Severity Reaction Status Date / Time amoxicillin Allergy Severe RASH/HIVES Verified 03/24/25 15:56 Vital Signs Vital Signs - 24 hr 03/24/25 12:42 03/24/25 13:46 03/24/25 17:08 Temperature 97.8 F Pulse Rate 89 66 66 Respiratory Rate 16 17 17 Blood Pressure 136/79 131/113 H Pulse Oximetry 97 95 95 Oxygen Delivery Room Air Fraction of Inspired Oxygen 03/24/25 20:00 03/24/25 20:20 03/24/25 20:44 Temperature 97.4 F L Pulse Rate 64 69 Respiratory Rate 18 Blood Pressure 125/69 Pulse Oximetry 94 97 Oxygen Delivery Room Air Room Air Fraction of Inspired Oxygen 21 03/25/25 05:05 03/25/25 08:53 03/25/25 09:00 Temperature 97 F L Pulse Rate 61 Respiratory Rate 16 Blood Pressure 120/63 Pulse Oximetry 96 96 Oxygen Delivery Room Air Room Air Fraction of Inspired Oxygen Exam Const: General: comfortable and no acute distress HENMT: Face/Nose/Sinus: Normal nares present Eyes: General: appearance normal, both eyes and all related structures Neck: Neck: supple Resp: Auscultation: clear to auscultation bilaterally Cardio: Rate: regular rate Rhythm: regular rhythm GI: Inspection: non-distended GI Palp: Yes Soft to palpation and No Tenderness to palpation present (GI) Auscultation: normal bowel sounds Skin: Other: jaundice Neuro: Speech: normal speech Motor exam (neuro): 5/5 motor strength present throughout Extrem: General: normal to inspection Psych: Mental Status: mental status grossly normal Results Labs 03/25/25 05:35 03/25/25 05:35 Labs: Short CBC 03/24/25 03/25/25 Range/Units 13:00 05:35 WBC 8.8 7.3 (4.5-10.0) K/mm3 Hgb 13.2 L 12.3 L (14.0-18.0) g/dL Hct 37.1 L 34.7 L (42.0-52.0) % Plt Count 369 334 (150-375) k/mm3 BMP 03/24/25 03/25/25 12:59 05:35 Sodium 133 L 134 L Potassium 3.5 3.3 L Chloride 98 99 Carbon Dioxide 21 L 23 BUN 14 13 Creatinine 0.92 0.92 Glucose 109 103 Calcium 9.5 9.0 Liver Function 03/24/25 03/25/25 Range/Units 12:59 05:35 Total Bilirubin 22.0 H 22.6 H (0.2-1.3) mg/dL AST 215 H 183 H (17-59) U/L ALT 453 H 389 H (6-50) U/L Alkaline Phosphatase 442 H 440 H (38-126) U/L Albumin 4.6 4.1 (3.5-5.1) g/dL Urine 03/24/25 Range/Units 12:58 Urine Color Dark yellow (Yellow) Urine Appearance Clear (Clear) Urine pH 7.0 (5.0-9.0) Ur Specific [place] 1.004 (1.001-1.035) Urine Protein Negative (Negative) mg/dL Urine Glucose (UA) Negative (Negative) mg/dL
--- NOTE | 2025-03-25 12:40 | P.TS_ITS ---
Transfer Discharge Sum: Prov Provider Date of admission: 03/24/25 13:49 Primary care physician: Lebron Brown, Admitting clinician: Talon Quiros MD Attending physician on admission: Talon Quiros Consults: 03/24/25 Consult to Physician Routine Comment: Consulting Provider: Fletcher Basurto Reason for consultation: Jaundice, ERCP/MRCP Has provider been notified: Yes Attending physician on discharge: Talon Quiros Discharging clinician: Cristy Sommers Receiving physician/facility: [facility], DR Mcfarlane-hospitalist (GI consult) DS: Admitting Diagnosis Discharge Date 03/25 Admitting Diagnosis jaundice DS: Discharge Diagnosis Discharge Diagnosis (1) Jaundice, obstructive, intrahepatic: Code(s): K83.1 - Obstruction of bile duct Status: Acute Assessment and Plan: CT of the abdomen/pelvis, 03/24: 1. Dilated intrahepatic biliary ducts and CBD. ERCP is advised for evaluation of the sphincter of Oddi. Distended gallbladder with no stones. 2. No evidence of appendicitis, diverticulitis or intestinal obstruction. 3. Slightly thickened segment of the transverse colon near to the splenic flexure. Follow-up advised. Total bilirubin 22. No previous history of hepatitis, liver disease, or previous episodes of jaundice. GI consulted, awaiting formal recs. ED provider spoke with on-call whipped topping mixer (Dr. Maher) who recommended an MRCP, possibility for ERCP. Trend LFTs and total bilirubin. Monitor mental status - neurological checks q.6, slow to respond but A&O x4. Check hepatitis panel. (2) Elevated LFTs: Code(s): R79.89 - Other specified abnormal findings of blood chemistry Status: Acute Assessment and Plan: Total bilirubin 22, AST 215, ALT 453, alk-phos 442. Ammonia WNL, 20. CT findings concerning for obstructive pathology, see above. Monitor. Transfer Discharge Sum: Med Medications Active and Home Medications: Home Medications albuterol sulfate 2.5 mg/3 mL (0.083 %) solution for nebulization 2.5 mg (3 mL) inhalation Q6H #90 mL 03/15/24 [Rx Confirmed 03/24/25] albuterol sulfate 90 mcg/actuation aerosol inhaler 90 mcg inhalation PRN PRN Shortness Of Breath Or Wheezing 03/15/24 [History Confirmed 03/24/25] budesonide-formoterol HFA 160 mcg-4.5 mcg/actuation aerosol inhaler (Symbicort) 2 puff inhalation PRN PRN Shortness Of Breath Or Wheezing 03/15/24 [History Confirmed 03/24/25] hydroxyzine HCl 25 mg tablet 25 mg PO DAILY 03/15/24 [History Confirmed 0 03/24/25] ipratropium bromide 0.02 % solution for inhalation 2.5 ml inhalation Q6H PRN shortness of breath or wheezing #75 mL 03/15/24 [Rx Confirmed 03/24/25] pantoprazole 40 mg tablet,delayed release 40 mg PO DAILY 03/15/24 [History Confirmed 03/24/25] lisinopril 10 mg tablet 10 mg PO DAILY 03/24/25 [History Confirmed 03/24/25] oxybutynin chloride 15 mg tablet,extended release 24 hr 15 mg PO DAILY 03/24/25 [History Confirmed 03/24/25] sildenafil (pulm.hypertension) 20 mg tablet 20 mg PO Q24H 03/24/25 [History Confirmed 03/24/25] Active Medications Acetaminophen (Acetaminophen 325 Mg Tablet) 650 mg PO Q4H PRN PRN Reason: Mild Pain (1-3) or Fever Albuterol (Albuterol Sulfate (*Sp) Aerosol 1 Puff) 1 puff INHALATION PRN PRN PRN Reason: Shortness Of Breath Or Wheezing Albuterol (Albuterol Sulfate Neb 2.5 Mg/3 Ml Inh) 2.5 mg INHALATION Q6HRT PRN PRN Reason: Shortness Of Breath Or Wheezin Hydroxyzine HCl (Hydroxyzine Hcl 25 Mg Tablet) 25 mg PO DAILY [facility] Ipratropium [place] (Ipratropium Br 0.02% Inh Soln 0.5 Mg/2.5 Ml Vial) 0.5 mg INHALATION Q6HRT PRN PRN Reason: shortness of breath or wheezing Lisinopril (Lisinopril 10 Mg Tablet) 10 mg PO DAILY [facility] Last Admin: 03/25/25 08:53 Dose: 10 mg Lorazepam (Lorazepam Inj (*Crx) 2 Mg/Ml Vial) 1 mg IV PUSH ONCE PRN PRN Reason: pre-medicate for MRI Non-Formulary Medication (Sildenafil (Pulm.Hypertension)) 20 mg PO Q24H [facility] Stop: 04/23/25 17:29 Last Admin: 03/24/25 18:57 Dose: Not Given Ondansetron HCl (Ondansetron Inj 4 Mg/2 Ml Vial) 4 mg IV PUSH Q4H PRN PRN Reason: Nausea Oxybutynin Chloride (Oxybutynin Chloride Xl 5 Mg Tab.Er.24) 15 mg PO DAILY [facility] Last Admin: 03/25/25 08:53 Dose: 15 mg Pantoprazole Sodium (Pantoprazole 40 Mg Tablet) 40 mg PO DAILY [facility] Last Admin: 03/25/25 08:54 Dose: 40 mg Polyethylene Glycol (Polyethylene Glycol 3350 17 Gm Powd.Pack) 17 gm PO QAM [facility] Last Admin: 03/25/25 11:43 Dose: 17 gm Fluticasone/Salmeterol (Fluticasone/Salmeterol 115-21 Mcg Inhaler 1 Puff) 2 puff INHALATION Q12HRT [facility] Last Admin: 03/25/25 08:59 Dose: 2 puff Transfer Discharge Sum: Hosp Hospital Course Hospital course: 59 y/o M with PMH of asthma, COPD, psoriasis, anxiety, GERD, and BPH presents here with abnormal outpatient labs. Present here per pcp direction 03/24 for further evaluation of abnormal outpatient labs. He reports he has been experiencing nausea, fatigue, new skin discoloration, mild lower abdominal pain, diarrhea, and diffuse itching for the past week. He reports the skin discoloration has been rapidly worsening over the past week - jaundiced. He initially sought evaluation through his primary provider, Dr. Brown, who ordered lab work and a CT scan of the abdomen/pelvis. CT was concerning for dilated intrahepatic ducts and biliary ducts and his bilirubin came back abnormal. His PCP contacted him with these results and recommended an ERCP as follow-up. Patient is unsure when this would be scheduled and his provider is now out of town for the weekend which prompted him to seek care at the emergency department. He denies any history of hepatitis, cirrhosis, injury/trauma, or recreational drug use. He reports ETOH use: 3-6 beers daily. The patient denies fever, chills, body aches, chest pain, shortness of breath, constipation, or recent illness. Last colonoscopy was approx 3-4 months ago, 3 polyps and they were benign. Initial VS at presentation: ED workup showed: No leukocytosis, hemoglobin 13.2, sodium 133, creatinine 0.92 and GFR >60, total bilirubin 22.0, AST 215, ALT 453, alk-phos 442, ammonia 20, lipase 139, and UA showed 2+ bilirubin otherwise unremarkable. CT of the abdomen/pelvis showed dilated intrahepatic biliary ducts and CBD (ERCP advised), distended gallbladder with no stones, no evidence of appendicitis/diverticulitis/in tonsil instruction, slightly thickened segment of transverse colon near the splenic flexure. GI consulted. MRCP done: Moderate intra and extra hepatic biliary ductal dilation extending to the ampulla where there is no evident obstructing stone or mass. Per GI recommendations, pt would need EUS to have better definite visualization of biliary system and r/o any potential obstructions/lesions. [facility] accepted pt. PT is alert, oriented, stable. Some abd discomfort but not requiring any meds at this point. Time Spent with Patient Time attestation: Total time spent providing and/or coordinating transfer services: Total time spent: Greater than 30 minutes Exam Const: General: comfortable and no acute distress Other: , male, nontoxic appearance HENMT: Face/Nose/Sinus: Normal nares present Mouth: Yes moist mucous membranes Eyes: General: appearance normal, both eyes and all related structures Sclera: scleral abnormality (+icterus bilaterally) Pupils: Equal, round and reactive pupils present EOM: EOMs intact bilaterally Resp: Effort & Inspection: normal respiratory effort Auscultation: clear to auscultation bilaterally Cardio: Rate: regular rate Rhythm: regular rhythm Other: S1-S2 present without murmur, rub, ectopy GI: Other: Abdomen soft, nondistended, nontender. Normoactive bowel sounds in all quadrants. Skin: General skin exam: no rashes or lesions noted Wounds: no wounds Other: jaundiced Neuro: Cranial nerves: Yes Equal, round and reactive pupils present Speech: normal speech Motor exam (neuro): 5/5 motor strength present throughout Sensory Exam: normal sensation Other: A&O x4 Extrem: General: normal to inspection Psych: Mental Status: mental status grossly normal Affect: normal affect Other: Good insight and judgment, pleasant DS: Data Data Completed and Pending Labs on day of discharge: Labs from last 24 hours 03/25/25 03/24/2525 05:35 13:00 12:59 WBC 7.3 8.8 RBC 3.90 L 4.18 L Hgb 12.3 L 13.2 L Hct 34.7 L 37.1 L MCV 89.0 88.8 MCH 31.5 31.6 MCHC 35.4 35.6 RDW 14.9 H 14.5 Plt Count 334 369 MPV 9.2 9.2 Immature Gran % (Auto) 2.6 H 2.1 H Neut % (Auto) 66.8 68.7 Lymph % (Auto) 11.7 L 11.6 L [place] % (Auto) 12.5 H 11.8 H Eos % (Auto) 4.8 H 4.2 Baso % (Auto) 1.6 H 1.6 H Lymph # (Auto) 0.85 L 1.02 [place] # (Auto) 0.9 H 1.0 H Eos # (Auto) 0.4 H 0.4 H Baso # (Auto) 0.1 0.1 Abs Immat Gran (auto) 0.19 H 0.18 H Absolute Neuts (auto) 4.9 6.0 Absolute Nucleated RBC 0.000 0.000 Nucleated RBC % 0.0 0.0 Sodium 134 L 133 L Potassium 3.3 L 3.5 Chloride 99 98 Carbon Dioxide 23 21 L Anion Gap 12 14 H BUN 13 14 Creatinine 0.92 0.92 Estim Creat Clear Calc 96 96 Estimated GFR > 60 > 60 Glucose 103 109 Calcium 9.0 9.5 Total Bilirubin 22.6 H 22.0 H AST 183 H 215 H ALT 389 H 453 H Alkaline Phosphatase 440 H 442 H Ammonia 20 Total Protein 8.0 8.0 Albumin 4.1 4.6 Lipase 139 Urine Color Urine Appearance Urine pH Ur Specific [place] Urine Protein Urine Glucose (UA) Urine Ketones Ur Blood (Man) Urine Nitrate Urine Bilirubin Urine Urobilinogen Leukocyte Esterase Rfl Hepatitis A IgM Ab Negative Hep Bs Antigen Negative Hep B Core IgM Ab Negative Hepatitis C Ab Screen Negative 03/24/25 12:58 WBC RBC Hgb Hct MCV MCH MCHC RDW Plt Count MPV Immature Gran % (Auto) Neut % (Auto) Lymph % (Auto) [place] % (Auto) Eos % (Auto) Baso % (Auto) Lymph # (Auto) [place] # (Auto) Eos # (Auto) Baso # (Auto) Abs Immat Gran (auto) Absolute Neuts (auto) Absolute Nucleated RBC Nucleated RBC % Sodium Potassium Chloride Carbon Dioxide Anion Gap BUN Creatinine Estim Creat Clear Calc Estimated GFR Glucose Calcium Total Bilirubin AST ALT Alkaline Phosphatase Ammonia Total Protein Albumin Lipase Urine Color Dark yellow Urine Appearance Clear Urine pH 7.0 Ur Specific [place] 1.004 Urine Protein Negative Urine Glucose (UA) Negative Urine Ketones Negative Ur Blood (Man) Negative Urine Nitrate Negative Urine Bilirubin 2+ H Urine Urobilinogen 0.2 Leukocyte Esterase Rfl Negative Hepatitis A IgM Ab Hep Bs Antigen Hep B Core IgM Ab Hepatitis C Ab Screen
[2025-03-25 14:00] VITALS: BP 109/62; PULSE 62; RESP 16; TEMP 36.4; O2SAT 95
== END 2025-03-25 18:10 | disposition short-term general hospital (02) | DRG 446 ==
LOC: ANHED 13:58 → ANH3MED 14:29
PROVIDERS: Student in an Organized Health Care Education/Training Program; Admitting Provider General Practice; Emergency Provider Student in an Organized Health Care Education/Training Program; PCP Family Medicine; Visit Provider General Practice
DX: K83.1 Obstruction of bile duct (principal); J45.909 Unspecified asthma, uncomplicated; K21.9 Gastro-esophageal reflux disease without esophagitis; L40.9 Psoriasis, unspecified; N40.1 Benign prostatic hyperplasia with lower urinary tract symptoms; R79.89 Other specified abnormal findings of blood chemistry; R35.1 Nocturia; F41.9 Anxiety disorder, unspecified
CPT/HCPCS: 36415; 74183; 76376; 80053; 80074; 81001; 82140; 83690; 85025; 94640; 96374; 99285; A9270; A9577; J1200; J7120